=== PATIENT | female | born 1970 | race Caucasian/White ===

== ENCOUNTER 2019-01-06 14:36 | Emergency (ER) | payer OTHER ==
[~2019-01-06] VITALS: Ht 165.1 cm; Wt 65.8 kg
[2019-01-06 16:33] LABS: BASOPHILS # (AUTO) 0.1 (0.0-0.1); BASOPHILS % 0.6 % (0.0-1.0); EOSINOPHILS # (AUTO) 0.3 (0.0-0.4); EOSINOPHILS % 2.9 % (0.0-6.0); HEMATOCRIT 38.6 % (34.2-44.1); HEMOGLOBIN 13.1 g/dL (12.0-16.0); LYMPHOCYTES # (AUTO) 3.4 (1.0-3.2); LYMPHOCYTES % 30.9 % (18.0-39.1); MEAN CORPUSCULAR HGB CONC 33.9 g/dL (31-35); MEAN CORPUSCULAR VOLUME 91.3 fL (81-99); MONOCYTES # (AUTO) 0.6 (0.2-0.8); MONOCYTES % 5.2 % (4.4-11.3); NEUTROPHILS # (AUTO) 6.6 (2.1-6.9); NEUTROPHILS % 59.9 % (38.7-80.0); PLATELET COUNT 423 x10e3/uL (140-360); RED BLOOD COUNT 4.23 x10e6/uL (3.6-5.1); RED CELL DISTRIBUTION WIDTH 12.6 % (11.7-14.4)
[2019-01-06 16:50] LABS: ALANINE AMINOTRANSFERASE 22 IU/L (0-55); ALBUMIN 3.6 g/dL (3.5-5.0); ALBUMIN/GLOBULIN RATIO 0.9 (0.8-2.0); ALKALINE PHOSPHATASE 144 IU/L (40-150); ANION GAP 13.2 mmol/L (8-16); BLOOD UREA NITROGEN 12 mg/dL (7-26); BUN/CREATININE RATIO 15 (6-25); CALCIUM 9.9 mg/dL (8.4-10.2); CARBON DIOXIDE 26 mmol/L (22-29); CHLORIDE 101 mmol/L (98-107); CREATININE, SERUM 0.81 mg/dL (0.57-1.11); EST GLOMERULAR FILTRATION RATE > 60 ML/MIN (60-); GLUCOSE 130 mg/dL (74-118); POTASSIUM 4.2 mmol/L (3.5-5.1); SODIUM 136 mmol/L (136-145)
[2019-01-06] MEDS ORDERED: IBUPROFEN 600 MG TAB PO STA (17:19)
[2019-01-06 17:37] LABS: CLARITY,URINE SL CLOUDY (CLEAR); COLOR,URINE YELLOW (YELLOW); LEUKOCYTE ESTERASE ,URINE NEGATIVE (NEGATIVE)
[2019-01-06 17:38] LABS: AMPHETAMINES SCREEN,URINE POSITIVE (NEGATIVE); BENZODIAZEPINES SCREEN,URINE POSITIVE (NEGATIVE); BILIRUBIN,URINE NEGATIVE (NEGATIVE); KETONES,URINE NEGATIVE (NEGATIVE); NITRITE,URINE NEGATIVE (NEGATIVE); PHENCYCLIDINE SCREEN,URINE NEGATIVE (NEGATIVE); PROTEIN,URINE DIPSTICK NEGATIVE (NEGATIVE); URINE UROBILINOGEN 0.2 mg/dL (0.2 - 1)
[2019-01-06 17:47] LABS: EPITHELIAL CELLS,URINE MODERATE /LPF
[2019-01-06 18:55] VITALS: BP 134/94
== END 2019-01-06 19:02 | disposition home or self-care (01) ==
LOC: ER 14:36
DX: M54.5 Low back pain (principal); M62.830 Muscle spasm of back; G89.29 Other chronic pain; F15.90 Other stimulant use, unspecified, uncomplicated; E11.65 Type 2 diabetes mellitus with hyperglycemia; F17.210 Nicotine dependence, cigarettes, uncomplicated
CPT/HCPCS: 36415; 80053; 80307; 81001; 85025; 87086; 99284

== ENCOUNTER 2020-07-13 07:44 | Emergency (ER) | payer OTHER ==
[~2020-07-13] VITALS: Ht 165.1 cm; Wt 65.8 kg
--- NOTE | 2020-07-13 07:54 | Emergency Department Note ---
History of Present Illnes History of Present Illness Chief Complaint: Chest Pain History of Present Illness This is a 49 year old female Chief Complaint Comment Patient in [facility] with complaints of shortness of breath, and chest pain that radiates down her left arm that started about 2 days ago. Patient also reports some mild nausea and vomiting but denies diarrhea. 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 Patient states she does not have a PCP. Denies taking prescription mediciations for the treatment of any medical problems. 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 Any updates have been documented here. Past Medical History Recent Fever: No Clinical Suspicion of Infectio: No New/Unexplained Change in Ment: No Past Medical History: Diabetes, TIA, Kidney Stones, Migraines, Anxiety, Depression, Chronic Back Pain Other Medical History: PANCREATITIS Past Surgical History: Cholecysctectomy, Appendectomy, Hysterectomy, , Hernia Repair, Back Surgery Other Last Tetanus: OOD Review of Systems Review of Systems Constitutional: Reports no symptoms EENTM: Reports no symptoms Cardiovascular: Reports as per HPI, Reports chest pain Respiratory: Reports no symptoms Gastrointestinal: Reports no symptoms Genitourinary: Reports no symptoms Musculoskeletal: Reports no symptoms Integumentary: Reports no symptoms Neurological: Reports no symptoms Psychological: Reports no symptoms Endocrine: Reports no symptoms Hematological/Lymphatic: Reports no symptoms Physical Exam Related Data Allergies: Coded Allergies: Penicillins (Verified Allergy, Mild, 01/06/19) Triage Vital Signs Vital Signs Date Time Temp Pulse Resp B/P (MAP) Pulse Ox O2 Delivery O2 Flow Rate FiO2 07/13/20 07:46 98.9 94 19 149/96 100 Room Air Vital signs reviewed: Yes Physical Exam CONSTITUTIONAL Constitutional: Present well-developed, Present well-nourished HENT HENT: Present normocephalic, Present atraumatic, Present oropharynx clear/moist, Present nose normal HENT L/R: Present left ext ear normal, Present right ext ear normal EYES Eyes: Reports PERRL, Reports conjunctivae normal NECK Neck: Present ROM normal PULMONARY Pulmonary: Present effort normal, Present breath sounds normal CARDIOVASCULAR Cardiovascular: Present regular rhythm, Present heart sounds normal, Present capillary refill normal, Present normal rate GASTROINTESTINAL Abdominal: Present soft, Present nontender, Present bowel sounds normal GENITOURINARY Genitourinary: Present exam deferred SKIN Skin: Present warm, Present dry MUSCULOSKELETAL Musculoskeletal: Present ROM normal NEUROLOGICAL Neurological: Present alert, Present oriented x 3, Present no gross motor or sensory deficits PSYCHOLOGICAL Psychological: Present mood/affect normal, Present judgement normal Results Laboratory Lab results reviewed: Yes Imaging Imaging results reviewed: Yes Diagnostics Tests Diagnostic test(s) reviewed: Yes Procedures 12 Lead ECG Interpretation ECG Interpretation : Balloon Design Printer: Interpreted by ED physician Date: Jul 13, 2020 Rhythm: sinus rhythm Rate: normal QRS axis: normal ST segments normal: Yes T waves normal: Yes Clinical Impression: non-specific ECG Assessment & Plan Medical Decision Making MDM 49 y.o F presents for consistent CP x 2 days. PMH sig for DM, meth abuse and smoking. Initial diff includes ACS vs PNA vs URI vs dissection among others. Doubt PE. HEART score 2. Cardiopulmonary w/u shows no sig abnormalities. UDS positive for amphetamines and benzos. Discussed results with patient. She wishes to be discharged home. Doubt emergent process at this time. They will follow up with their primary care provider or return to the emergency department for new or worsening symptoms. Patient's appropriate for discharge. Reassessment Reassessment time: 09:36 Reassessment Largely unchanged. 50mcg fentanyl ordered for pain Assessment & Plan Final Impression: (1) Chest pain Depart Disposition: HOME, SELF-CARE Last Vital Signs Date Time Temp Pulse Resp B/P (MAP) Pulse Ox O2 Delivery O2 Flow Rate FiO2 07/13/20 07:46 98.9 94 19 149/96 100 Room Air ELVIA GILL MD Jul 13, 2020 07:54
[2020-07-13 08:05] LABS: BASOPHILS # (AUTO) 0.1 (0.0-0.1); BASOPHILS % 0.5 % (0.0-1.0); EOSINOPHILS # (AUTO) 0.4 (0.0-0.4); EOSINOPHILS % 3.3 % (0.0-6.0); HEMOGLOBIN 12.8 g/dL (12.0-16.0); LYMPHOCYTES # (AUTO) 2.4 (1.0-3.2); LYMPHOCYTES % 23.2 % (18.0-39.1); MEAN CORPUSCULAR HEMOGLOBIN 30.2 pg (28-32); MEAN CORPUSCULAR HGB CONC 32.8 g/dL (31-35); MONOCYTES # (AUTO) 0.5 (0.2-0.8); MONOCYTES % 4.8 % (4.4-11.3); NEUTROPHILS # (AUTO) 7.1 (2.1-6.9); NEUTROPHILS % 67.8 % (38.7-80.0); PLATELET COUNT 406 x10e3/uL (140-360); RED BLOOD COUNT 4.24 x10e6/uL (3.6-5.1); RED CELL DISTRIBUTION WIDTH 12.9 % (11.7-14.4)
[2020-07-13] MEDS ORDERED: ONDANSETRON HCL INJ 2MG/ML 2ML 2 MG/ML VIAL IV STA (08:06)
--- OUTSIDE RECORDS SUMMARY | 2020-07-13 08:09 | XMS REPORT | Continuity of Care Document ---
Author Author Hayde Guillen [employer], JOEL Luu [place] Address Unknown Phone Unavailable Care Team Providers Care Yarn Spinner Name Role Phone [employer] Unavailable Un available Problems Problem Status Onset Date Classification Date Reported Comments Source Discharge Diagnosis: Bruising 06/06/2016 06/09/2016 [place] PAIN IN SIDE Active 06/06/2016 [place] Discharge Diagnosis: Abdominal pain 05/27/2016 05/30/2016 [place] Discharge Diagnosis: Flank pain 05/27/2016 05/30/2016 [place] NAUSEA, BACK, ABD PAIN Active 05/27/2016 [place] Insomnia, unspecified type Act tosin Problem 2.0.1.920112.4.391.11.2 2568 Migraine without status migrainosus, not intractable, unspecified migraine type Active Problem 11/21/2017 2.16840.1.017013.4.391.11.27236 Transient cerebral ischemia, unspecified type Active Problem 11/21/2017 2.16840.1.798532.4.391.11.53304 Otitis externa, unspecified chronicity, unspecified laterality, unspecified type Active Problem 11/21/2017 2.16840.1.003925.4.391.11.84560 Depression, unspecified depression type Active Problem 11/21/2017 2.16840.1.515775.4.391.11.25695 Tobacco use disorder Active Diagnosis 11/21/2017 2.0.1.624943.4.391.11.2 2568 Kidney stones Active Problem 11/21/2017 2.16840.1.539760.4.391.11.80011 Chronic anxiety Active Problem 11/21/2017 2.840.1.378464.4.391.11.2 2568 Type 2 diabetes mellitus without complic ation, without long-term current use of insulin Active Problem 11/21/2017 2.16.840.1.240273.4.391.11.99951 Seizures Active Problem 11/21/2017 2.16.840.1.309276.4.391.11.19167 BMI 26.0-26.9,adult Active Diagnosis 11/21/2017 2.16.840.1.254699.4.391.11.2 2568 Medical non-compliance Active Diagnosis 11/21/2017 2.16.840.1.297684.4.391.11.2 2568 Chest pain, unspecified type A ctive Diagnosis 0 11/21/2017 2.16.840.1.568567.4.391.11.2 2568 Furunculosis Active Diagnosis 11/21/2017 2.16.840.1.228608.4.391.11.2 2568 Encounter for general adult medical exam ination with abnormal findings Active Diag nosis 11/21/2017 2.16.840.1.846109.4.391.11.53080 Dysuria Active Diagnosis 11/14/2016 2.16.840.1.484516.4.391.11.63610 Anxiety (finding) Active Problem 06/09/2016 [place] Chronic back pain (disorder) A ctive Problem [place] Depressive disorder (disorder) Active Problem [place] Diabetes mellitus (disorder) A ctive Problem [place] Insomnia (disorder) Active Problem 06/09/2016 [place] Migraine (disorder) Active Problem 06/09/2016 [place] Neuropathy (disorder) Active Problem 06/09/2016 [place] Transient ischemic attack (disorder) Resolved Problem [place] Medications Medication Details Route Status Patient Instructions Ordering Provider Order Date Source Aspirin EC Low Dose take one t ablet by mouth daily NA Active 81 Vinicio 04/27/2018 2.16.840.1.639322.4.391.11.70336 Ciprofloxacin 1 tablet Orally Active 500 mg Orally Twice a d ay Vinicio 11/11/2017 2.16.840.1.882868.4.391.11.15911 Hibiclens as directed Externally Active 4 % Externally daily Vinicio 10/29/2017 2.16.840.1.903347.4.391.11.05467 Doxycycline Hyclate 1 capsule Orally Active 100 mg Orally every 12 hrs Vinicio 10/29/2017 2.16.840.1.316899.4.391.11.70149 Bactroban 1 application to aff ected area Externally Active 2 % Externally Three times a day Vinicio 10/29/2017 2.16.840.1.732911.4 .391.11.09684 Pravastatin Sodium 1 tablet Orally Active 20 MG Orally Once a day Vinicio 03/07/2017 2.16.840.1.860767.4.391.11.75857 Duloxetine HCl 1 capsule Orally Active 60 MG Orally Once a day Vinicio 03/07/2017 2.16.840.1.647388.4.391.11.05758 Gabapentin 1 capsule Orally Active 400 MG Orally Three larissa es a day Vinicio 03/07/2017 2.16.840.1.767745.4.391.11.49224 Aspir-81 1 tablet Orally Active 81 MG Orally Once a day Vinicio 03/02/2017 2.16.840.1.596856.4.391.11.91657 Bydureon inject 2 mg Subcutaneous Active 2 MG Subcutaneous ONCE A WEEK Vinicio 03/02/2017 2.16.840.1.704405.4.391.11.94964 Cambia [address] omach one time Orally Active 50 MG Orally Once a day Vinicio 03/02/2017 2.16.840.1.184411.4.391.11.04420 Botox inject Injection Active 200 UNIT Injection EVER Y 12 WEEKS Vinicio 03/02/2017 2.16.840.1.117115.4.391.11.50998 Klonopin 1 tablet Orally Active 1 MG Orally three times a day (tid) Vinicio 01/29/2017 2.16.840.1.608833.4.391.11.82355 Klonopin 1 tablet Orally Active 1 MG Orally three times a day (tid) Vinicio 01/29/2017 2.16.840.1.254291.4.391.11.76848 Bactroban 1 application to aff ected area Externally Active 2 % Externally Three times a day Vinicio 01/29/2017 2.16.840.1.223233.4 .391..99831 Flonase 1 spray in each nostril Nasally Active 50 MCG/DOSE Nasally Once a day Vinicio 01/29/2017 2.16.840.1.868411.4.391..95363 Zofran 2 tablets Orally Active 4 MG Orally three times a day (tid) as needed (prn) Vinicio 01/29/2017 2.16.840.1.339580.4.391..74893 Zofran 2 tablets Orally Active 4 mg Orally three times a day (tid) as needed (prn) Vinicio 01/29/2017 2.16.840.1.382256.4.391..23893 Flonase 1 spray in each nostril Nasally Active 50 MCG/DOSE Nasally Once a day Vinicio 01/29/2017 2.16.840.1.689738.4.391..30009 Methocarbamol 1 tablet Orally Active 500 MG Orally as needed (prn) Vinicio 12/02/2016 2.16.840.1.648899.4.391.11.21789 Dilaudid Notes: (Same as: Dila udid) Inactive 06/07/2016 [place] Saline Flush 0.9% Notes: (Same as: BD Posiflush) Inactive 06/07/2016 [place] tramadol hydrochloride 50 MG Oral Tablet [Ultram] 1 - 2 tabs, PO, Q4-6H, PRN as needed for pain, X 5 day, # 30 ea, 0 Refill(s) Active 05/27/2016 [place] Ondansetron 4 MG Disintegrating Tablet [Zofran] 4 mg = 1 tab, PO, TID, PRN Nausea and Vomiting, X 4 day, # 10 tab, 0 Refill(s) Active 05/27/2016 [place] Ketorolac Tromethamine 10 MG Oral Tablet 10 mg = 1 tab, PO, TID, X 5 day, # 15 tab, 0 Refill(s) Active 05/27/2016 [place] Ketorolac 4 days MEDICA TION WASTE Product Size: 30 mg Product Wasted: ___ mg Inactive 05/27/2016 [place] Benadryl Notes: (Same as: Arin dryl) Inactive 05/27/2016 [place] Sumatriptan ONCE, 0 Refill(s) Active 05/27/2016 [place] Trokendi XR PO, Daily, 0 Refil l(s) Active 05/27/2016 [place] duloxetine PO, 0 Refill(s) Active 05/27/2016 [place] Metformin PO, 0 Refill(s) Active 05/27/2016 [place] Pravastatin PO, Bedtime, 0 Ref ill(s) Active 05/27/2016 [place] Ondansetron Notes: (Same as: Babita robles) MEDICATION WASTE Product Size: 4 mg Product Wasted: ___ mg Inactive 05/27/2016 [place] Morphine Notes: (Same as:MORPh ine Sulfate) Inactive 05/27/2016 [facility] Sodium Chloride 0.154 MEQ/ML Injectable Solution 1,000 mL, 2,000 ml/hr, Infuse Over: 30 minutes, Route: IV, 1,000, Drug form: INJ, ONCE, Priority: STAT, Dosing Weight 66.619 kg, Start date: 05/27/16 13:38:00 CDT, Duration: 1 doses or times, Stop date: 05/27/16 13:38:00 CDT Inactive 05/27/2016 [facility] Saline Flush 0.9% Notes: (Same as: BD Posiflush) Inactive 05/27/2016 [facility] Zofran TAKE TWO TABLETS BY ONOFRE THREE TIMES A DAY NEEDED FOR 10 DAYS NA Active 4 Vinicio 2.840.1.656038.4.391. Trokendi XR 1 capsule Orally Active 200 MG Orally Once a da y Vinicio 2.840.1.518719.4.391. Pravastatin Sodium 1 tablet Orally Active 20 MG Orally Once a day Vinicio 2.840.1.679520.4.391. Seroquel 1 tablet Orally Active 25 MG Orally Once a day Vinicio 2.16.840.1.974338.4.391. Duloxetine HCl 1 capsule Orally Active 60 MG Orally Once a day Vinicio 10.11.830.1.774624.4.391. Doxycycline Hyclate 1 capsule Orally Active 100 MG Orally every 12 hrs Vinicio 10.11.830.1.906274.4.391. Sumatriptan Succinate 1 tablet as needed Orally Active 100 MG Orally Twice a day Vinicio 10.11.830.1.075100.4.391. Temazepam 1 capsule at bedtime as needed Orally Active 30 MG Orally Once a day Vinicio 10.11.830.1.575339.4.391 Indomethacin 1 capsule with fo od or milk orally Active orally three times a day (tid) as needed (prn) Vinicio 10.11.830.1.442301.4.391.11.2 2568 Metformin HCl 1 tablet with me als Orally Active 1000 MG Orally Twice a day Vinicio 10.11.830.1.495472.4.391 Gabapentin 1 capsule Orally Active 400 MG Orally Three larissa es a day Vinicio 10.11.830.1.487985.4.391. Clopidogrel Bisulfate 1 tablet Orally Active 75 MG Orally Once a day Vinicio 10.11.830.1.344744.4.391. Metformin HCl 1 tablet with me als Orally Active 1000 mg Orally Twice a day Vinicio 10.11.830.1.346166.4.391 Temazepam 1 capsule at bedtime as needed Orally Active 30 MG Orally Once a day Vinicio 10.11.830.1.400345.4.391. Doxycycline Hyclate 1 capsule Orally Active 100 MG Orally every 12 hrs Vinicio 10.11.830.1.261864.4.391 Clopidogrel Bisulfate 1 tablet Orally Active 75 MG Orally Once a day Vinicio 10.11.830.1.169514.4.391. Pravastatin Sodium TAKE ONE TA BLET BY MOUTH DAILY NA Active 20 Vinicio 10.11.830.1.272673.4.39168 Duloxetine HCl 1 capsule by mouth Active 60 MG by mouth daily Vinicio 840.1.833816.4.391 Seroquel 1 tablet Orally Active 25 MG Orally Once a day Vinicio 840.1.145451.4.391 Trokendi XR 1 capsule Orally Active 200 MG Orally Once a da y Vinicio 840.1.739811.4.391 Gabapentin 1 capsule by mouth Active 400 by mouth three time s a day (tid) Vinicio 840.1.801495.4.391 Sumatriptan Succinate 1 tablet as needed Orally Active 100 mg Orally Twice a day Vinicio 840.1.528306.4.39168 Indomethacin 1 capsule with fo od or milk orally Active orally three times a day (tid) as needed (prn) Vinicio 2.0.1.426996.4.391.11.2 2568 Allergies, Adverse Reactions, Alerts Substance Category Reaction Severity Reaction type Status Date Reported Comments Source penicillin Adverse Reaction shortness of breath Adverse Reaction Active 10/29/2017 2.16840.1.325794.4.391.11.2 2568 morphine Assertion Drug allergy Active [facility] penicillins Assertion Drug allergy Active [facility] Immunizations No Data Provided for This Section Results Order Name Results Value Reference Range Date Interpretation Comments Source URINE AND STOOL Occult Bld Stl Negative (06/06/16 8:22 PM) Negative 06/07/2016 [facility] CARDIAC ENZYMES Troponin-I <0.02 0.00 - 0.40 06/07/2016 [facility] CHEM PANEL Lipase Lvl 201 73 - 393 06/07/2016 [facility] CHEM PANEL eGFR 92 06/07/2016 Result Comment: The eGFR is calculated using the CKD-EPI formula. In most young, healthy individuals the eGFR will be >90 mL/min/1.73m2. The eGFR declines with age. An eGFR of 60-89 may be normal in some populations, particularly the elderly, for whom the CKD-EPI formula has not been extensively validated. Use of the eGFR is not recommended in the following populations:

Individuals with unstable creatinine concentrations, including patients and those with serious co-morbid conditions.

Patients with extremes in muscle mass or diet.

The data above are obtained from the National Kidney Disease Education Program (NKDEP) which additionally recommends that when the eGFR is used in patients with extremes of body mass index for purposes of drug dosing, the eGFR should be multiplied by the estimated BMI. [place] CHEM PANEL Sodium Lvl 143 135 - 145 06/07/2016 [place] CHEM PANEL Creatinine Lvl 0.78 0.50 - 1.40 06/07/2016 [place] CHEM PANEL BUN 17 7 - 22 06/07/2016 [place] CHEM PANEL Potassium Lvl 3.7 3.5 - 5.1 06/07/2016 [place] CHEM PANEL Chloride Lvl 109 95 - 109 06/07/2016 [place] CHEM PANEL AST 11 0 - 37 06/07/2016 [place] CHEM PANEL Bili Total 0.3 0.2 - 1.3 06/07/2016 [place] CHEM PANEL Alk Phos 155 39 - 136 06/07/2016 [place] CHEM PANEL Total Protein 7.8 6.4 - 8.4 06/07/2016 [place] CHEM PANEL ALT 21 0 - 65 06/07/2016 [place] CHEM PANEL Calcium Lvl 9.1 8.5 - 10.5 06/07/2016 [place] CHEM PANEL CO2 26 24 - 32 06/07/2016 [place] CHEM PANEL Albumin Lvl 3.7 3.5 - 5.0 06/07/2016 [place] CHEM PANEL Glucose Lvl 98 70 - 99 06/07/2016 [place] CHEM PANEL A/G Ratio 0.9 0.7 - 1.6 06/07/2016 [place] CHEM PANEL Globulin 4.1 2.7 - 4.2 06/07/2016 [place] CHEM PANEL B/C Ratio 22 6 - 25 06/07/2016 [place] CHEM PANEL AGAP 11.7 10.0 - 20.0 06/07/2016 [place] HEMATOLOGY Hct 37.5 36.0 - 48.0 06/07/2016 [place] HEMATOLOGY RBC 3.95 4.20 - 5.40 06/07/2016 [place] HEMATOLOGY Hgb 12.6 12.0 - 16.0 06/07/2016 [place] HEMATOLOGY WBC 11.9 3.7 - 10.4 06/07/2016 [place] HEMATOLOGY MCH 31.9 27.0 - 31.0 06/07/2016 [place] HEMATOLOGY MCV 94.8 80.0 - 98.0 06/07/2016 [place] HEMATOLOGY MCHC 33.7 32.0 - 36.0 06/07/2016 [place] HEMATOLOGY RDW 13.4 11.5 - 14.5 06/07/2016 [place] HEMATOLOGY MPV 7.6 7.4 - 10.4 06/07/2016 [place] HEMATOLOGY Platelet 373 133 - 450 06/07/2016 [place] HEMATOLOGY PTT 37.9 22.9 - 35.8 06/07/2016 [place] HEMATOLOGY INR 1.02 0.85 - 1.17 06/07/2016 [place] HEMATOLOGY PT 13.6 12.0 - 14.7 06/07/2016 [place] HEMATOLOGY Monocytes 5.3 2.0 - 12.0 06/07/2016 [place] HEMATOLOGY Lymphocytes 34.4 20.0 - 40.0 06/07/2016 [place] HEMATOLOGY Segs 56.1 45.0 - 75.0 06/07/2016 [place] HEMATOLOGY Eosinophils 3.7 0.0 - 4.0 06/07/2016 [place] HEMATOLOGY Basophils 0.5 0.0 - 1.0 06/07/2016 [place] HEMATOLOGY Segs-Bands # 6.7 1.5 - 8.1 06/07/2016 [place] HEMATOLOGY Monocytes # 0.6 0.0 - 0.8 06/07/2016 [place] HEMATOLOGY Lymphocytes # 4.1 1.0 - 5.5 06/07/2016 [place] HEMATOLOGY Eosinophils # 0.4 0.0 - 0.5 06/07/2016 [place] HEMATOLOGY Basophils # 0.1 0.0 - 0.2 06/07/2016 [place] CHEM PANEL Glucose Lvl 76 70 - 99 05/27/2016 [place] CHEM PANEL BUN 9 7 - 22 05/27/2016 [place] CHEM PANEL Creatinine Lvl 0.76 0.50 - 1.40 05/27/2016 [place] CHEM PANEL Chloride Lvl 109 95 - 109 05/27/2016 [place] CHEM PANEL CO2 25 24 - 32 05/27/2016 [place] CHEM PANEL Sodium Lvl 145 135 - 145 05/27/2016 [place] CHEM PANEL Potassium Lvl 4.0 3.5 - 5.1 05/27/2016 [place] CHEM PANEL A/G Ratio 0.9 0.7 - 1.6 05/27/2016 [place] CHEM PANEL eGFR 95 05/27/2016 Result Comment: The eGFR is calculated using the CKD-EPI formula. In most young, healthy individuals the eGFR will be >90 mL/min/1.73m2. The eGFR declines with age. An eGFR of 60-89 may be normal in some populations, particularly the elderly, for whom the CKD-EPI formula has not been extensively validated. Use of the eGFR is not recommended in the following populations:

Individuals with unstable creatinine concentrations, including patients and those with serious co-morbid conditions.

Patients with extremes in muscle mass or diet.

The data above are obtained from the National Kidney Disease Education Program (NKDEP) which additionally recommends that when the eGFR is used in patients with extremes of body mass index for purposes of drug dosing, the eGFR should be multiplied by the estimated BMI. [place] CHEM PANEL Total Protein 7.6 6.4 - 8.4 05/27/2016 [place] CHEM PANEL Calcium Lvl 8.7 8.5 - 10.5 05/27/2016 [place] CHEM PANEL ALT 20 0 - 65 05/27/2016 [place] CHEM PANEL Albumin Lvl 3.7 3.5 - 5.0 05/27/2016 [place] CHEM PANEL AST 12 0 - 37 05/27/2016 [place] CHEM PANEL Bili Total <0.1 0.2 - 1.3 05/27/2016 [place] CHEM PANEL Alk Phos 146 39 - 136 05/27/2016 [place] CHEM PANEL B/C Ratio 12 6 - 25 05/27/2016 [place] CHEM PANEL AGAP 15.0 10.0 - 20.0 05/27/2016 [place] CHEM PANEL Globulin 3.9 2.7 - 4.2 05/27/2016 [place] CHEM PANEL Lipase Lvl 133 73 - 393 05/27/2016 [place] HEMATOLOGY MPV 7.9 7.4 - 10.4 05/27/2016 [place] HEMATOLOGY MCHC 34.0 32.0 - 36.0 05/27/2016 [place] HEMATOLOGY MCH 31.8 27.0 - 31.0 05/27/2016 [place] HEMATOLOGY MCV 93.7 80.0 - 98.0 05/27/2016 [place] HEMATOLOGY Hct 37.8 36.0 - 48.0 05/27/2016 [place] HEMATOLOGY RDW 13.3 11.5 - 14.5 05/27/2016 [place] HEMATOLOGY Hgb 12.8 12.0 - 16.0 05/27/2016 [place] HEMATOLOGY RBC 4.03 4.20 - 5.40 05/27/2016 [place] HEMATOLOGY WBC 11.8 3.7 - 10.4 05/27/2016 [place] HEMATOLOGY Platelet 395 133 - 450 05/27/2016 [place] HEMATOLOGY Basophils # 0.1 0.0 - 0.2 05/27/2016 [place] HEMATOLOGY Eosinophils # 0.4 0.0 - 0.5 05/27/2016 [place] HEMATOLOGY Monocytes # 0.5 0.0 - 0.8 05/27/2016 [place] HEMATOLOGY Basophils 0.7 0.0 - 1.0 05/27/2016 [place] HEMATOLOGY Eosinophils 3.8 0.0 - 4.0 05/27/2016 [place] HEMATOLOGY Monocytes 4.0 2.0 - 12.0 05/27/2016 [place] HEMATOLOGY Lymphocytes # 3.9 1.0 - 5.5 05/27/2016 [place] HEMATOLOGY Segs-Bands # 6.8 1.5 - 8.1 05/27/2016 [place] HEMATOLOGY Lymphocytes 33.4 20.0 - 40.0 05/27/2016 [place] HEMATOLOGY Segs 58.1 45.0 - 75.0 05/27/2016 [place] URINE AND STOOL UA Sq Epi Occasional /LPF Few /LPF 05/27/2016 [place] URINE AND STOOL UA RBC 1 0 - 2 05/27/2016 [place] URINE AND STOOL UA WBC 1 0 - 5 05/27/2016 [place] URINE AND STOOL UA Mucus Many /LPF None Seen /LPF 05/27/2016 [place] URINE AND STOOL UA Nitrite Negative (05/27/16 2:02 PM) Negative 05/27/2016 [place] URINE AND STOOL UA Leuk Est Negative (05/27/16 2:02 PM) Negative 05/27/2016 [place] URINE AND STOOL UA Glucose Negative mg/dL Negative mg/dL 05/27/2016 [facility] Sugar L and URINE AND STOOL UA Urobilinogen 0.2 0.1 - 1.0 05/27/2016 [place] URINE AND STOOL UA Ketones Negative mg/dL Negative mg/dL 05/27/2016 [facility] Sugar L and URINE AND STOOL UA Blood Negative (05/27/16 2:02 PM) Negative 05/27/2016 [place] URINE AND STOOL UA Bili Negative *NA* (05/27/16 2:02 PM) Negative 05/27/2016 [place] URINE AND STOOL UA Color Yellow *NA* (05/27/16 2:02 PM) Yellow 05/27/2016 [place] URINE AND STOOL UA Protein Negative mg/dL Negative mg/dL 05/27/2016 [facility] Sugar L and URINE AND STOOL UA Spec Grav 1.020 <=1.030 05/27/2016 [place] URINE AND STOOL UA Turbidity Clear (05/27/16 2:02 PM) Clear 05/27/2016 [place] URINE AND STOOL UA pH 6.0 5.0 - 8.0 05/27/2016 [place] Pathology Reports No Data Provided for This Section Diagnostic Reports Report Value Date Source Renal Stone CT TECHNIQUE: [facility] Stone protocol CT is performed without iodinated contrast. Helical CT axial images were obtained from the level of the diaphragm through the lower pelvis. Coronal and sagittal MPR images were obtained. The DLP is 1191 mGy-cm. COMPARISON: No prior exam. Clinical: Left lower quadrant pain. FINDINGS: The included lung bases are clear. There is no pneumoperitoneum. Nonobstructive left lower renal 3.8 mm papillary calculus is present. No additional urinary tract calculus is seen. No obstructive uropathy is seen bilaterally. The urinary bladder is unremarkable. The non contrast opacified loops of colon and small bowel in the abdomen and pelvis are grossly unremarkable. The appendix is not identified. Right lower quadrant surgical clips are present. The lack of orally administered contrast material limits bowel evaluation. The visualized non contrast enhanced images of the liver, spleen, pancreas, and adrenals are unremarkable. The patient is post cholecystectomy. Mild abdominal aortic atherosclerosis is present without aneurysm. No free fluid is identified in the abdomen and pelvis. L5-S1 posterior fusion changes are present. Please note that the left S1 fixation screw protrudes into the left common iliac vessels. IMPRESSION: 1. Nonobstructive left renal calculus. N o hydronephrosis bilaterally. 2. Please see additional comments above. 05/27/2016 [place] Consultation Notes No Data Provided for This Section Discharge Summaries No Data Provided for This Section History and Physicals No Data Provided for This Section Vital Signs Vital Sign Value Date Comments Source Weight 157.9 10/29/2017 2.16.840.1.061890.4.391.11.2 2568 Height 65.0 10/29/2017 2.16.840.1.429517.4.391.11.2 2568 Temperature Oral (F) 98.0 F 10/29/2017 2.16.840.1.356407.4.391.11.84826 Heart Rate 97 10/29/2017 2.16.840.1.473844.4.391.11.2 2568 Diastolic (mm Hg) 87 10/29/2017 2.16.840.1.395554.4.391.11.59883 Systolic (mm Hg) 138 10/29/2017 2.16.840.1.900452.4.391.11.53223 Weight 128.1 01/29/2017 2.16.840.1.420456.4.391.11.2 2568 Height 65.0 01/29/2017 2.16.840.1.125001.4.391.11.2 2568 Temperature Oral (F) 98.3 F 01/29/2017 2.16.840.1.949144.4.391.11.76601 Heart Rate 82 01/29/2017 2.16.840.1.071657.4.391.11.2 2568 Diastolic (mm Hg) 72 01/29/2017 2.16.840.1.560065.4.391.11.39488 Systolic (mm Hg) 116 01/29/2017 2.16.840.1.009926.4.391.11.85455 Weight 126.5 11/02/2016 2.16.840.1.507454.4.391.11.2 2568 Height 65.0 11/02/2016 2.16.840.1.103195.4.391.11.2 2568 Temperature Oral (F) 97.7 F 11/02/2016 2.16.840.1.977510.4.391.11.15659 Heart Rate 86 11/02/2016 2.16.840.1.111842.4.391.11.2 2568 Diastolic (mm Hg) 83 11/02/2016 2.16.840.1.903609.4.391.11.63224 Systolic (mm Hg) 121 11/02/2016 2.16.840.1.217984.4.391.11.63222 Systolic (mm Hg) 108 06/07/2016 [place] Diastolic (mm Hg) 74 06/07/2016 [place] Temperature Oral (F) 97.7 F 06/07/2016 [place] Respitory Rate 20 06/07/2016 [place] Heart Rate 76 06/07/2016 [place] Heart Rate 86 06/07/2016 [place] Systolic (mm Hg) 110 06/07/2016 [place] Diastolic (mm Hg) 70 06/07/2016 [place] Respitory Rate 18 06/07/2016 [place] Temperature Oral (F) 98.2 F 06/07/2016 [place] Heart Rate 71 05/27/2016 [place] Respitory Rate 20 05/27/2016 [place] Systolic (mm Hg) 132 05/27/2016 [place] Diastolic (mm Hg) 80 05/27/2016 [place] Temperature Oral (F) 98.1 F 05/27/2016 [place] Systolic (mm Hg) 139 05/27/2016 [place] Diastolic (mm Hg) 73 05/27/2016 [place] Respitory Rate 20 05/27/2016 [place] Heart Rate 72 05/27/2016 [place] Respitory Rate 18 05/27/2016 [place] Heart Rate 83 05/27/2016 [place] Temperature Oral (F) 98.3 F 05/27/2016 [place] Systolic (mm Hg) 124 05/27/2016 [place] Diastolic (mm Hg) 87 05/27/2016 [place] Weight 66.619 05/27/2016 [place] Encounters Location Location Details Encounter Type Encounter Number Reason For Visit Attending Provider ADM Date DC Date Status Source [facility] [place] [facility] [id number] Phil Lozano 05/27/2016 05/27/2016 [place] [facility] [place] [facility] [id number] Tony Vaughn 06/07/2016 06/07/2016 [place] Procedures Procedure Code Date Perfomer Comments Source Abdominal hysterectomy [id number] [place] Appendectomy [id number] Sugar L and section [id number] [place] Cholecystectomy [id number] [place] Excision of breast tissue [phone] [place] Lumbar discectomy [id number] [place] Assessment and Plan No Data Provided for This Section Plan of Care No Data Provided for This Section Social History Social History Date Source Social History TypeResponse Alcohol Never Smoking Status Current every day smoker; Exposure to Tobacco Smoke None; Cigarette Smoking Last 365 Days No; Reg Smoking Cessation Counseling No 05/30/2016 [place] Family History No Data Provided for This Section Advance Directives No Data Provided for This Section Functional Status No Data Provided for This Section
--- OUTSIDE RECORDS SUMMARY | 2020-07-13 08:10 | XMS REPORT | Continuity of Care Document ---
Author Author [facility] t Organization [facility] Address [address] [place] [address] Phone Unavailable Care Team Providers Care Leak Detector Name Role Phone NO, PCP PCP Unavailable Annabella BARRAZA Attphys Unavailable Manuel Vaughn Attphys Tenzin Lozano Attphys Payers Payer Name Policy Type Policy Number Effective Date Expiration Date S [facility] Self Pay [facility] Problems Condition Name Condition Details Condition Category Status Onset Date Resolution Date Last Treatment Date Treating Clinician Comments Source PAIN IN SIDE PAIN IN SIDE Active 06/06/2016 [place] Diagnosis Active 2016-06-06 00:00:00 2016-07-25 14:09:00 Hayde Guillen NAUSEA, BACK, ABD PAIN NAUS EA, BACK, ABD PAIN Active 05/27/2016 [place] Diagnosis Active 2016-05-27 00:00:00 2016-06 10:28:00 Hayde Guillen Transient ischemic attack (disorder) Transient ischemic attack (disorder) Resolved Problem 06/09/2016 [place] Problem Resolved 2016-06-09 03:59:46 Hayde Guillen Insomnia, unspecified type Ins omnia, unspecified type Active Problem 11/21/2017 [id number] Problem Active 2017-11-21 02:49:18 Hayde Guillen Migraine without status migrainosus, not intractable, unspecified migraine type Migraine without status migrainosus, not intractable, unspecified migraine type Active Problem 11/21/2017 [id number] Problem Active 2017-11-21 02:49:18 King Guillen Transient cerebral ischemia, unspecified type Transient cerebral ischemia, unspecified type Active Problem 11/21/2017 [id number] Problem Active 2017-11-21 02:49:18 Hayde Guillen Otitis externa, unspecified chronicity, unspecified laterality, unspecified type Otitis externa, unspecified chronicity, unspecified laterality, unspecified type Active Problem 11/21/2017 [id number]..02963 Problem Active 2017-11-21 02:49:18 King Guillen Depression, unspecified depression type Depression, unspecified depression type Active Problem 11/21/2017 2..840.1.692964.4.391..86093 Problem Active 2017-11-21 02:49:18 King Guillen Tobacco use disorder 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 Active Diagnosis 11/21/2017 [id number]..99430 Diagnosis Active 2017-11-21 02:49:18 Hayde Guillen Kidney stones Kidn ey stones Active Problem 11/21/2017 [id number] Problem Active 2017-11-21 02:49:18 Hayde Guillen Chronic anxiety Ion Exchange Operator rg anxiety Active Problem 11/21/2017 2.16.840.1.775523.4.391.11.14468 Problem Active 2017-11-21 02:49:18 Hayde Guillen Type 2 diabetes mellitus without complic ation, without long-term current use of insulin Type 2 diabetes mellitus without complication, without long-term current use of insulin Active Problem 11/21/2017 2.16.840.1.585440.4.391.11.46141 Problem Active 2017-11-21 02:49:18 Hayde Guillen Seizures Seiz ures Active Problem 11/21/2017 2.16.840.1.895377.4.391.11.22051 Problem Active 2017-11-21 02:49:18 [facility] BMI 26.0-26.9,adult BMI 26.0-26.9,adult Active Diagnosis 11/21/2017 [id number] Diagnosis Active 2017-11-21 02:49:18 [facility] Medical non-compliance Medi adeola non-compliance Active Diagnosis 11/21/2017 [id number] Diagnosis Active 2017-11-21 02:49:18 Hayde Guillen Chest pain, unspecified type C hest pain, unspecified type Active Diagnosis 11/21/2017 [id number] Diagnosis Active 2017-11-21 02:49:18 Memor mariella Guillen Furunculosis Furu nculosis Active Diagnosis 11/21/2017 [id number] Diagnosis Active 2017-11-21 02:49:18 Hayde Guillen Encounter for general adult medical examination with a bnormal findings Encounter for general adult medical examination with abnormal findings Active Diagnosis 11/21/2017 [id number] Diagnosis Active 2017-11-21 02:49:18 Memor mariella Guillen Dysuria Dysu everette Active Diagnosis 11/14/2016 [id number] Diagnosis Active 2016-11-14 02:45:42 Hayde Guillen Anxiety (finding) Anxi ety (finding) Active Problem 06/09/2016 [place] Problem Active 2016-06-09 03:59:46 Hayde Guillen Chronic back pain (disorder) C hronic back pain (disorder) Active Problem 06/09/2016 [place] Problem Active 2016-06-09 03:59:46 Hayde Guillen Depressive disorder (disorder) Depressive disorder (disorder) Active Problem 06/09/2016 [place] Problem Active 2016-06-09 03:59:46 Hayde Guillen Diabetes mellitus (disorder) D iabetes mellitus (disorder) Active Problem 06/09/2016 [place] Problem Active 2016-06-09 03:59:46 [facility] Insomnia (disorder) Inso mnia (disorder) Active Problem 06/09/2016 [place] Problem Active 2016-06-09 03:59:46 [facility] Migraine (disorder) Migr tha (disorder) Active Problem 06/09/2016 [place] Problem Active 2016-06-09 03:59:46 [facility] Neuropathy (disorder) Neur opathy (disorder) Active Problem 06/09/2016 [place] Problem Active 2016-06-09 03:59:46 [facility] Discharge Diagnosis: Bruising Discharge Diagnosis: Bruising 06/06/2016 06/09/2016 [place] Problem 2015 05:00:00 2016-06-09 03:59:46 2016-06-09 03:59:46 [facility] Discharge Diagnosis: Abdominal pain Discharge Diagnosis: Abdominal pain 05/27/2016 05/30/2016 [place] Problem 2016-05-27 05:00:00 2016-05-30 00:30:44 2016-05-30 00:30:44 [facility]: Flank pain Discharge Diagnosis: Flank pain 05/27/2016 05/30/2016 [place] Problem 20 10-06-02 05:00:00 2016-05-30 00:30:44 2016-05-30 00:30:44 [facility] Allergies, Adverse Reactions, Alerts Allergy Name Allergy Type Status Severity Reaction(s) Onset Date Inacti ve Date Treating Clinician Comments Source Penicillins DA Active SV 2019-02-10 00:00:00 [facility] Penicillin Allergy to Substance Active Mild 2019-01-06 00:00:00 [facility] penicillin penicillin Active shortness of breath 2017-10-29 00:00: 00 [facility] Penicillins DA Active SV 2016-12-16 00:00:00 [facility] morphine morphine Active [facility] penicillins penicillins Active [facility] Social History Social Habit Start Date Stop Date Quantity Comments Source Social History 2016-05-30 17:29:03 2016-05-30 17:29:03 [facility] Medications Ordered Medication Name Filled Medication Name Start Date Stop Da te Current Medication? Ordering Clinician Indication Dosage Frequency Signature (SIG) Comments Components Source Aspirin EC Low Dose 2018-04-27 00:00:00 Yes Lux Jave d take one tablet by mouth daily [facility] Zofran 2017-11-21 02:49:18 Yes Lux Vinicio TAKE TWO TABLETS BY MOUTH THREE TIMES A DAY NEEDED FOR 10 DAYS [facility] Metformin HCl 2017-11-21 02:49:18 Yes Lux Vinicio 1 tablet with meals [facility] Temazepam 2017-11-21 02:49:18 Yes Lux Vinicio 1 capsule at bedtime as needed [facility] Doxycycline Hyclate 2017-11-21 02:49:18 Yes Lux Vinicio 1 capsule [facility] Clopidogrel Bisulfate 2017-11-21 02:49:18 Yes Lux Vinicio 1 tablet [facility] Pravastatin Sodium 2017-11-21 02:49:18 Yes Lux Vinicio TAKE ONE TABLET BY MOUTH DAILY [facility] Duloxetine HCl 2017-11-21 02:49:18 Yes Lux Vinicio 1 capsule [facility] Seroquel 2017-11-21 02:49:18 Yes Lux Vinicio 1 tablet [facility] Trokendi XR 2017-11-21 02:49:18 Yes Lux Vinicio 1 capsule [facility] Gabapentin 2017-11-21 02:49:18 Yes Lux Vinicio 1 capsule [facility] Sumatriptan Succinate 2017-11-21 02:49:18 Yes Lux Ja conor 1 tablet as needed [facility] Indomethacin 2017-11-21 02:49:18 Yes Lux Vinicio 1 capsule with food or milk [facility] Ciprofloxacin 2017-11-11 00:00:00 Yes Lux Vinicio 1 tablet [facility] Hibiclens 2017-10-29 00:00:00 Yes Lux Vinicio a s directed [facility] Doxycycline Hyclate 2017-10-29 00:00:00 Yes Lux Vinicio 1 capsule [facility] Bactroban 2017-10-29 00:00:00 Yes Lux Vinicio 1 application to affected area [facility] Pravastatin Sodium 2017-03-07 00:00:00 Yes Lux Vinicio 1 tablet [facility] Duloxetine HCl 2017-03-07 00:00:00 Yes Lux Vinicio 1 capsule [facility] Gabapentin 2017-03-07 00:00:00 Yes Lux Vinicio 1 capsule [facility] Aspir-81 2017-03-02 00:00:00 Yes Lux Vinicio 1 tablet [facility] Bydureon 2017-03-02 00:00:00 Yes Lux Vinicio in ject 2 mg [facility] Cambia 2017-03-02 00:00:00 Yes Lux Vinicio 1 packet on an empty stomach one time [facility] Botox 2017-03-02 00:00:00 Yes Lux Vinicio injec t [facility] Trokendi XR 2017-01-31 02:46:36 Yes Lux Vinicio 1 capsule [facility] Pravastatin Sodium 2017-01-31 02:46:36 Yes Lux Vinicio 1 tablet [facility] Seroquel 2017-01-31 02:46:36 Yes Lux Vinicio 1 tablet [facility] Duloxetine HCl 2017-01-31 02:46:36 Yes Lux Vinicio 1 capsule [facility] Doxycycline Hyclate 2017-01-31 02:46:36 Yes Lux Vinicio 1 capsule [facility] Sumatriptan Succinate 2017-01-31 02:46:36 Yes Lux Ja conor 1 tablet as needed [facility] Temazepam 2017-01-31 02:46:36 Yes Lux Vinicio 1 capsule at bedtime as needed [facility] Indomethacin 2017-01-31 02:46:36 Yes Lux Vinicio 1 capsule with food or milk [facility] Metformin HCl 2017-01-31 02:46:36 Yes Lux Vinicio 1 tablet with meals [facility] Gabapentin 2017-01-31 02:46:36 Yes Lux Viniico 1 capsule [facility] Clopidogrel Bisulfate 2017-01-31 02:46:36 Yes Lux Vinicio 1 tablet [facility] Klonopin 2017-01-29 00:00:00 Yes Lux Vinicio 1 tablet [facility] Klonopin 2017-01-29 00:00:00 Yes Lux Vinicio 1 tablet [facility] Bactroban 2017-01-29 00:00:00 Yes Lux Vinicio 1 application to affected area [facility] Flonase 2017-01-29 00:00:00 Yes Lux Vinicio 1 spray in each nostril [facility] Zofran 2017-01-29 00:00:00 Yes Lux Vinicio 2 ta blets Hayde Guillen Zofran 2017-01-29 00:00:00 Yes Lux Vinicio 2 ta blets Hayde Guillen Flonase 2017-01-29 00:00:00 Yes Lux Vinicio 1 spray in each nostril Hayde Guillen Methocarbamol 2016-12-02 00:00:00 Yes Lux Vinicio 1 tablet Hayde Guillen Dilaudid 2016-06-07 02:45:00 No Notes: ([facility] indra as: Dilaudid) Hayde Guillen Saline Flush 0.9% 2016-06-07 01:03:00 No Notes: (Same as: BD Posiflush) Hayde Guillen tramadol hydrochloride 50 MG Oral Tablet [Ultram] 2016-05-27 20:55:00 Yes 1 - 2 tabs, PO, Q4-6 H, PRN as needed for pain, X 5 day, # 30 ea, 0 Refill(s) Hayde Guillen Ondansetron 4 MG Disintegrating Tablet [Zofran] 2016-05-27 20:55 :00 Yes 4 mg = 1 tab, PO, TID, PRN N ausea and Vomiting, X 4 day, # 10 tab, 0 Refill(s) Hayde Guillen Ketorolac Tromethamine 10 MG Oral Tablet 2016-05-27 20:55:00 Yes 10 mg = 1 tab, PO, TID, X 5 day, # 15 tab, 0 Refill(s) [facility] Ketorolac 2016-05-27 20:11:00 No 4 days MEDICATION WASTE Product Size: 30 mg Product Wasted: ___ mg Hayde Guillen Benadryl 2016-05-27 19:11:00 No Notes: ([facility] indra as: Benadryl) Hayde Guillen Sumatriptan 2016-05-27 18:42:00 Yes ONCE, 0 Refill(s) Hayde Guillen Trokendi XR 2016-05-27 18:41:00 Yes PO, Hermelinda y, 0 Refill(s) Hayde Guillen duloxetine 2016-05-27 18:40:00 Yes PO, 0 Ref ill(s) [facility] Metformin 2016-05-27 18:40:00 Yes PO, 0 Refi ll(s) [facility] Pravastatin 2016-05-27 18:40:00 Yes PO, Bedt freedom, 0 Refill(s) Hayde Guillen Ondansetron 2016-05-27 18:38:00 No Notes: (Same as: Sha) MEDICATION WASTE Product Size: 4 mg Product Wasted: ___ mg Hayde Guillen Morphine 2016-05-27 18:38:00 No Not es: (Same as:MORPhine Sulfate) Hayde Guillen Sodium Chloride 0.154 MEQ/ML Injectable Solution 2016-05-27 18:3 8:00 No 1,000 mL, 2,000 ml/hr, Infus e Over: 30 minutes, Route: IV, 1,000, Drug form: INJ, ONCE, Priority: STAT, Dosing Weight 66.619 kg, Start date: 05/27/16 13:38:00 CDT, Duration: 1 doses or times, Stop date: 05/27/16 13:38:00 [facility]T [facility] Sal[facility] Flush 0.9% 2016-05-27 18:38:00 No Notes: (Same as: BD Posiflush) [facility] Vital Signs Vital Name Observation Time Observation Value Comments Source Weight 2017-10-29 19:45:00 [facility] Height 2017-10-29 19:45:00 [facility] Temperature Oral (F) 2017-10-29 19:45:00 98.0 F [facility] Heart Rate 2017-10-29 19:45:00 [facility] Diastolic (mm Hg) 2017-10-29 19:45:00 [facility] Systolic (mm Hg) 2017-10-29 19:45:00 [facility] Weight 2017-01-29 17:00:00 [facility] Height 2017-01-29 17:00:00 [facility] Temperature Oral (F) 2017-01-29 17:00:00 98.3 F [facility] Heart Rate 2017-01-29 17:00:00 [facility] Diastolic (mm Hg) 2017-01-29 17:00:00 [facility] Systolic (mm Hg) 2017-01-29 17:00:00 [facility] Weight 2016-11-02 20:30:00 [facility] Height 2016-11-02 20:30:00 [facility] Temperature Oral (F) 2016-11-02 20:30:00 97.7 F [facility] Heart Rate 2016-11-02 20:30:00 [facility] Diastolic (mm Hg) 2016-11-02 20:30:00 [facility] Systolic (mm Hg) 2016-11-02 20:30:00 King [facility] Systolic (mm Hg) 2016-06-07 03:04:00 King [facility] Diastolic (mm Hg) 2016-06-07 03:04:00 [facility] Temperature Oral (F) 2016-06-07 03:04:00 97.7 F [facility] Respitory Rate 2016-06-07 03:04:00 [facility] Heart Rate 2016-06-07 03:04:00 [facility] Heart Rate 2016-06-07 00:36:00 [facility] Systolic (mm Hg) 2016-06-07 00:36:00 King [facility] Diastolic (mm Hg) 2016-06-07 00:36:00 [facility] Respitory Rate 2016-06-07 00:36:00 [facility] Temperature Oral (F) 2016-06-07 00:36:00 98.2 F [facility] Heart Rate 2016-05-27 21:03:00 [facility] Respitory Rate 2016-05-27 21:03:00 [facility] Systolic (mm Hg) 2016-05-27 21:03:00 [facility] Diastolic (mm Hg) 2016-05-27 21:03:00 [facility] Temperature Oral (F) 2016-05-27 21:03:00 98.1 F [facility] Systolic (mm Hg) 2016-05-27 20:21:00 King [facility] Diastolic (mm Hg) 2016-05-27 20:21:00 [facility] Respitory Rate 2016-05-27 20:21:00 [facility] Heart Rate 2016-05-27 20:21:00 [facility] Respitory Rate 2016-05-27 17:48:00 [facility] Heart Rate 2016-05-27 17:48:00 [facility] Temperature Oral (F) 2016-05-27 17:48:00 98.3 F [facility] Systolic (mm Hg) 2016-05-27 17:48:00 King [facility] Diastolic (mm Hg) 2016-05-27 17:48:00 [facility] Weight 2016-05-27 17:48:00 [facility] Procedures Procedure Date / Time Performed Performing Clinician Brant e Abdominal hysterectomy [facility] Appendectomy [facility] section [facility] n Cholecystectomy [facility] Excision of breast tissue [facility] Lumbar discectomy [facility] Sand[facility] nn Encounters Start Date/Time End Date/Time Encounter [facility] ID Source 2019-01-06 14:36:00 2019-01-06 19:02:00 Departed Emergency Room [facility] [id number] [facility] 2017-11-11 17:23:00 2017-11-11 17:23:00 Outpatient [facility] [place] [id number] eClinicalWork s 2017-10-29 14:45:00 2017-10-29 14:45:00 Outpatient [facility] [place] [id number] eClinicalWork s 2017-07-05 09:54:00 2017-07-05 09:54:00 Outpatient [facility] [place] [id number] eClinicalWork s 2017-04-11 13:26:00 2017-04-11 13:26:00 Outpatient [facility] [place] [id number] eClinicalWork s 2017-01-29 12:00:00 2017-01-29 12:00:00 Outpatient [facility] [place] [id number] eClinicalWork s 2016-11-02 15:30:00 2016-11-02 15:30:00 Outpatient [facility] [place] [id number] eClinicalWork s 2016-06-06 19:31:00 2016-06-06 22:07:00 Outpatient Tony Vaughn [facility] [id number] 2016-05-27 12:46:00 2016-05-27 16:03:00 Outpatient Penny Lozano [facility] [id number] Results Test Description Test Time Test Comments Results Result Comments Source - CT ABD PELVIS W/CONT 2019-03-14 21:42:00 Giorgio e: JOEL WILSON [facility] : 1970 Age/S: 48 / F [address] [facility] Unit #: [id number] Loc: [place] Hernán[place] [address] Phys: Enid Fitzgerald MD Acct: [id number] Dis Date: Status: REG ER PHONE #: [phone] Exam Date: 03/14/20192125 FAX #: [phone] Reason: R SIDED ABD PAIN AND DISTENTION EXAMS: CPT CODE: [id number] CT ABD PELVIS W/CONT 85238 AFTER HOURS SERVICE ON: 03/14/2019 9:[address] Scan of the Abdomen and Pelvis With Contrast Location Code M12 History: R SIDED ABD PAIN AND DISTENTION Technique: Axial and reconstructed coronal scans were performed on a helical scanner post IV contrast. Delayed scans were also obtained. One or more of the following dose reduction techniques were used: Automated exposure control, adjustment of the mA and/or kV according to p atient size, and/or utilization of iterative reconstruction technique. Findings: LIVER: No significant findings. GALLBLADDER/BILIARY: Cholecystectomy. PANCREAS: No significant findings. SPLEEN: No significant findings. ADRENALS: No significant findings. KIDNEYS: There is a 4 mm nonobstructing left lower pole renal calculus. No hydronephrosis. BLADDER: No significant findings. GASTROINTESTINAL: No significant findings. The appendix is not visualized. OTHER: Bilateral adnexal surgical clips are in place. Uterus is absent.. IMPRESSION: No acute findings in the abdomen or pelvis. at 2142 Reported and signed by: Danna Dover M.D. PAGE 1 Signed Report (CONTINUED) Name: JOEL WILSON [facility] : 1970 Age/S: 48 / F [address] [facility] Unit #: [id number] Loc: [place] [address] Phys: Enid Fitzgerald MD Acct: [id number] Dis Date: Status: REG ER PHONE #: [phone] Exam Date: 03/14/20192125 FAX #: [phone] Reason: R SIDED ABD PAIN AND DISTENTION EXAMS: CPT CODE: [id number] CT ABD PELVIS W/CONT 28890 <Continued> CC: Halina Mooney M.D. Technologist:FRANCISCO YEN RT(R),CT CTDI: DLP: Trnscb Date/Time: 03/14/2019 (2141) [email or web address] Orig Print D/T: S: 03/14/2019 (2144) PAGE 2 Signed Report - XR CHEST 1 V 2019-03-14 21:34:00 Name: JOEL MELENDREZ [facility] : 1970 Age/S:48 /F [address] [facility] Unit#:[id number] Loc: [place] Hern[place]dez, [place] x [address] Phys: Enid Fitzgerald MD Dis Date: PHONE #: [phone] Status: REG ER FAX #: [phone] Exam Date: 03/14/2019 Reason: CHEST PAIN EXAMS: CPT CODE: [id number] XR CHEST 1 V 53221 HISTORY: CHEST PAIN TECHNIQUE: AP chest x-ray COMPARISON: 02/10/19 FINDINGS: No airspace consolidation or pleural effusion. Normal heart size. Mediastinal silhouette is unremarkable. Visualized osseous structures are grossly intact. IMPRESSION: No acute findings or significant interval change. at 2133 Reported and signed by: Mirta Ochoa D.O. CC: Halina Mooney M.D. Technologist: FRANCISCO YEN RT(R),CT Trnscrpt Data: 03/14/2019 (2133) [email or web address] Orig Print D/T: S: 03/14/2019 (2137) PAGE 1 Signed Report B-TYPE NATRIURETIC PEPTIDE 2019-03-14 21:06:00 Test Item B-TYPE NATRIURETIC PEPTIDE (test code = BNP) 11.9 pg/mL 0-100 N URINALYSIS [id number] 21:05:00* Test Item Value Reference Range Interpretation Comments UA COLOR (test code = COLU) YELLOW YELLOW UA APPEARANCE (test code = APPU) CLEAR CLEAR UA GLUCOSE DIPSTICK (test code = DGLUU) norm mg/dL NEGATIVE UA BILIRUBIN DIPSTICK (test code = BILU) NEGATIVE mg/dL NEGATIVE UA KETONE DIPSTICK (test code = KETU) neg mg/dL NEGATIVE UA SPECIFIC GRAVITY (test code = SGU) 1.015 1.001-1.035 UA BLOOD DIPSTICK (test code = ARASH) neg Yan/uL NEGATIVE UA PH DIPSTICK (test code = KATIE) 6.0 5.0-8.0 UA PROTEIN DIPSTICK (test code = PROU) neg mg/dL Neg-15 UA UROBILINIOGEN DIPSTICK (test code = URO) norm mg/dL 0.0-0.2 UA NITRITE DIPSTICK (test code = JAIRO) NEGATIVE NEGATIVE UA LEUKOCYTE ESTERASE DIPSTICK (test code = LEUU) neg uL NEGA TIVE UA WBC (test code = WBCU) 0-5 per HPF 0-5 UA RBC (test code = RBCU) NONE SEEN per HPF 0-5 UA EPITHELIAL CELLS (test code = EPIU) Few (2-5/hpf) per HPF Few UA BACTERIA (test code = BACU) FEW per HPF NONE Urine Source? Clean CatchDRUGS OF ABUSE SCREEN [id number] 21:05:00* Test Item Value Reference Range Interpretation Comments URN COCAINE (test code = COCAURN) NEGATIVE NEGATIVE URN CANNABINOIDS (test code = CANNABURN) POSITIVE NEGATIVE URN AMPHETAMINE (test code = AMPHETURN) POSITIVE NEGATIVE URN BARBITURATE (test code = BARBITURN) NEGATIVE NEGATIVE URN BENZODIAZEPINE (test code = BENZOURN) NEGATIVE NEGATIVE URN OPIATES (test code = OPIATURN) NEGATIVE NEGATIVE URN PHENCYCLIDINE (PCP) (test code = PHENCURN) NEGATIVE NEGATIV E Urine Source? Clean CatchBASIC METABOLIC [id number] 21:05:00* Test Item Value Reference Range Interpretation Comments SODIUM (test code = NA) 141 mmol/L 136-145 N POTASSIUM (test code = K) 3.6 mmol/L 3.5-5.1 N CHLORIDE (test code = CL) 103 mmol/L 101-109 N CARBON DIOXIDE (test code = CO2) 28.0 mmol/L 21-32 N ANION GAP (test code = GAP) 14 mmol/L 10-20 N GLUCOSE (test code = GLU) 185 mg/dL 74-106 H BLOOD UREA NITROGEN (test code = BUN) 11 mg/dL 3-21 N GLOMERULAR FILTRATION RATE (test code = GFR) > 60 mL/min >=60 Estimated GFR by using Modified MDRD formula.Chronic kidney disease is defined as either kidney damageor GFR <60 mL/min/1.73 m2 for >3 months. CREATININE (test code = CREAT) 0.80 mg/dL 0.55-1.3 N BUN/CREATININE RATIO (test code = BUN/CREA) 13.8 10-20 N CALCIUM (test code = CA) 8.6 mg/dL 8.4-10.2 N HEPATIC FUNCTION [id number] 21:05:00* Test Item Value Reference Range Interpretation Comments TOTAL PROTEIN (test code = PROT) 7.4 g/dL 6.5-8.4 N ALBUMIN (test code = ALB) 3.2 g/dL 3.4-4.8 L GLOBULIN (test code = GLOB) 4.2 G/DL 1-10 N ALBUMIN/GLOBULIN RATIO (test code = A/G) 0.76 RATIO 0.75-1.50 N BILIRUBIN TOTAL (test code = BILT) 0.20 mg/dL 0.0-1.0 N BILIRUBIN DIRECT (test code = BILD) 0.00 mg/dL 0.0-0.30 N SGOT/AST (test code = AST) 15 U/L 6-32 N SGPT/ALT (test code = ALT) 17 U/L 12-78 N N ote: Change in REFERENCE RANGE due to new reagent method. ALKALINE PHOSPHATASE TOTAL (test code = ALKP) 130 U/L 38-126 H [id number] 21:05:00* Test Item Value Reference Range Interpretation Comments LIPASE (test code = LIP) 147 U/L 128-270 N [id number] 21:05:00* Test Item Value Reference Range Interpretation Comments TROPONIN-I (test code = TROPI) <0.015 ng/mL 0.00-0.056 N URINALYSIS [id number] 21:03:00* Test Item Value Reference Range Interpretation Comments UA COLOR (test code = COLU) YELLOW YELLOW UA APPEARANCE (test code = APPU) CLEAR CLEAR UA GLUCOSE DIPSTICK (test code = DGLUU) norm mg/dL NEGATIVE UA BILIRUBIN DIPSTICK (test code = BILU) NEGATIVE mg/dL NEGATIVE UA KETONE DIPSTICK (test code = KETU) neg mg/dL NEGATIVE UA SPECIFIC GRAVITY (test code = SGU) 1.015 1.001-1.035 UA BLOOD DIPSTICK (test code = ARASH) neg Yan/uL NEGATIVE UA PH DIPSTICK (test code = KATIE) 6.0 5.0-8.0 UA PROTEIN DIPSTICK (test code = PROU) neg mg/dL Neg-15 UA UROBILINIOGEN DIPSTICK (test code = URO) norm mg/dL 0.0-0.2 UA NITRITE DIPSTICK (test code = JAIRO) NEGATIVE NEGATIVE UA LEUKOCYTE ESTERASE DIPSTICK (test code = LEUU) neg uL NEGA TIVE UA WBC (test code = WBCU) 0-5 per HPF 0-5 UA RBC (test code = RBCU) NONE SEEN per HPF 0-5 UA EPITHELIAL CELLS (test code = EPIU) Few (2-5/hpf) per HPF Few UA BACTERIA (test code = BACU) FEW per HPF NONE Urine Source? Clean CatchDRUGS OF ABUSE SCREEN [id number] 21:03:00* Test Item Value Reference Range Interpretation Comments URN COCAINE (test code = COCAURN) NEGATIVE URN CANNABINOIDS (test code = CANNABURN) NEGATIVE URN AMPHETAMINE (test code = AMPHETURN) NEGATIVE URN BARBITURATE (test code = BARBITURN) NEGATIVE URN BENZODIAZEPINE (test code = BENZOURN) NEGATIVE URN OPIATES (test code = OPIATURN) NEGATIVE URN PHENCYCLIDINE (PCP) (test code = PHENCURN) NEGATIV E Urine Source? Clean CatchCBC W/AUTO [id number] 20:59:00* Test Item Value Reference Range Interpretation Comments WHITE BLOOD CELL (test code = WBC) 11.2 K/mm3 4.5-12.5 N Previously reported result: TNP K/rn6Ynxlte by: [email or web address] on 03/14/19:2058Previously reported result: 5.0 K/cu0Cvbyai by: V.LAB.CB1 on 03/14/19:2034 RED BLOOD CELL (test code = RBC) 4.04 mill/mm3 3.7-5.2 N Previously reported result: 3.41 mill/qy9Jfehhx by: Hunite.CB1 on 03/14/19:2035 HEMOGLOBIN (test code = HGB) 12.2 gram/dL 11.5-15.5 N Previously reported result: 7.0 gram/dLEdited by: [email or web address] on 03/14/19:2035 HEMATOCRIT (test code = HCT) 37.4 % 36.0-46.0 N Previously reported result: 25.0 %Edited by: [email or web address] on 03/14/19:2035 MEAN CELL VOLUME (test code = MCV) 92.6 fL 80-98 N Previously reported result: 73.3 fLEdited by: [email or web address] on 03/14/19:2035 MEAN CELL HGB (test code = MCH) 30.2 picogram 27.0-33.0 N Previously reported result: 20.5 picogramEdited by: [email or web address] on 03/14/19:2035 MEAN CELL HGB CONCETRATION (test code = MCHC) 32.6 gram/dL 33.0-36. 0 L Previously reported result: 28.0 gram/dLEdited by: [email or web address] on 03/14/19 RED CELL DISTRIBUTION WIDTH (test code = RDW) 12.7 % 11.6-16. 2 N Previously reported result: 22.8 %Edited by: [email or web address] on 03/14/19:2035 RED CELL DISTRIBUTION WIDTH SD (test code = RDW-SD) 43.6 fL 37 .0-51.0 N Previously reported result: 60.2 fLEdited by: [email or web address] on 03/14/19 PLATELET COUNT (test code = PLT) 410 K/mm3 150-450 N Previously reported result: 380 K/am7Drlhby by: [email or web address] on 03/14/19:2036 MEAN PLATELET VOLUME (test code = MPV) 9.1 fL 6.7-11.0 N Previously reported result: 8.6 fLEdited by: [email or web address] on 03/14/19:2036 NEUTROPHIL % (test code = NT%) 63.9 % 39.0-69.0 N LYMPHOCYTE % (test code = LY%) 26.9 % 25.0-55.0 N MONOCYTE % (test code = MO%) 5.7 % 0.0-10.0 N EOSINOPHIL % (test code = EO%) 2.9 % 0.0-5.0 N BASOPHIL % (test code = BA%) 0.3 % 0.0-1.0 N NEUTROPHIL # (test code = NT#) 7.34 K/mm3 1.8-7.7 N LYMPHOCYTE # (test code = LY#) 3.08 K/mm3 1.0-5.0 N MONOCYTE # (test code = MO#) 0.65 K/mm3 0-0.8 N EOSINOPHIL # (test code = EO#) 0.33 K/mm3 0.0-0.5 N BASOPHIL # (test code = BA#) 0.03 K/mm3 0.0-0.2 N MANUAL DIFF REQUIRED (test code = MDIFF) NO BASIC METABOLIC [id number] 20:57:00* Test Item Value Reference Range Interpretation Comments SODIUM (test code = NA) 141 mmol/L 136-145 N POTASSIUM (test code = K) 3.6 mmol/L 3.5-5.1 N CHLORIDE (test code = CL) 103 mmol/L 101-109 N CARBON DIOXIDE (test code = CO2) 28.0 mmol/L 21-32 N ANION GAP (test code = GAP) 14 mmol/L 10-20 N GLUCOSE (test code = GLU) 185 mg/dL 74-106 H BLOOD UREA NITROGEN (test code = BUN) 11 mg/dL 3-21 N GLOMERULAR FILTRATION RATE (test code = GFR) > 60 mL/min >=60 Estimated GFR by using Modified MDRD formula.Chronic kidney disease is defined as either kidney damageor GFR <60 mL/min/1.73 m2 for >3 months. CREATININE (test code = CREAT) 0.80 mg/dL 0.55-1.3 N BUN/CREATININE RATIO (test code = BUN/CREA) 13.8 10-20 N CALCIUM (test code = CA) 8.6 mg/dL 8.4-10.2 N HEPATIC FUNCTION [id number] 20:57:00* Test Item Value Reference Range Interpretation Comments TOTAL PROTEIN (test code = PROT) gram/dL 6.4-8.2 ALBUMIN (test code = ALB) g/dL 3.4-5.0 GLOBULIN (test code = GLOB) g/dL 2.7-4.2 ALBUMIN/GLOBULIN RATIO (test code = A/G) 0.75-1.50 BILIRUBIN TOTAL (test code = BILT) mg/dL 0.2-1.2 BILIRUBIN DIRECT (test code = BILD) mg/dL 0.0-0.20 SGOT/AST (test code = AST) IUnit/L 15-37 SGPT/ALT (test code = ALT) U/L 10-69 ALKALINE PHOSPHATASE TOTAL (test code = ALKP) IUnit/L 45-117 [id number] 20:57:00* Test Item Value Reference Range Interpretation Comments LIPASE (test code = LIP) Unit/L 144-286 [id number] 20:57:00* Test Item Value Reference Range Interpretation Comments TROPONIN-I (test code = TROPI) ng/mL 0-0.045 CBC W/AUTO [id number] 20:49:00* Test Item Value Reference Range Interpretation Comments WHITE BLOOD CELL (test code = WBC) TEST NOT PERFORMED K/mm3 4.5-12. 5 N Previously reported result: 5.0 K/ls9Vxrmrn by: Hunite.TrueAbility on 03/14/19 RED BLOOD CELL (test code = RBC) 4.04 mill/mm3 3.7-5.2 N Previously reported result: 3.41 mill/fh8Hegdeu by: [email or web address] on 03/14/19 HEMOGLOBIN (test code = HGB) 12.2 gram/dL 11.5-15.5 N Previously reported result: 7.0 gram/dLEdited by: [email or web address] on 03/14/19 HEMATOCRIT (test code = HCT) 37.4 % 36.0-46.0 N Previously reported result: 25.0 %Edited by: Hunite.TrueAbility on 03/14/19 MEAN CELL VOLUME (test code = MCV) 92.6 fL 80-98 N Previously reported result: 73.3 fLEdited by: [email or web address] on 03/14/19 MEAN CELL HGB (test code = MCH) 30.2 picogram 27.0-33.0 N Previously reported result: 20.5 picogramEdited by: [email or web address] on 03/14/19 MEAN CELL HGB CONCETRATION (test code = MCHC) 32.6 gram/dL 33.0-36. 0 L Previously reported result: 28.0 gram/dLEdited by: HuniteAnjuTrueAbility on 03/14/19 RED CELL DISTRIBUTION WIDTH (test code = RDW) 12.7 % 11.6-16. 2 N Previously reported result: 22.8 %Edited by: HuniteAnjuTrueAbility on 03/14/19:2035 RED CELL DISTRIBUTION WIDTH SD (test code = RDW-SD) 43.6 fL 37 .0-51.0 N Previously reported result: 60.2 fLEdited by: HuniteAnjuTrueAbility on 03/14/19 PLATELET COUNT (test code = PLT) 410 K/mm3 150-450 N Previously reported result: 380 K/nt0Kcaxzk by: HuniteAnjuTrueAbility on 03/14/19:2036 MEAN PLATELET VOLUME (test code = MPV) 9.1 fL 6.7-11.0 N Previously reported result: 8.6 fLEdited by: HuniteAnjuTrueAbility on 03/14/19 NEUTROPHIL % (test code = NT%) 63.9 % 39.0-69.0 N LYMPHOCYTE % (test code = LY%) 26.9 % 25.0-55.0 N MONOCYTE % (test code = MO%) 5.7 % 0.0-10.0 N EOSINOPHIL % (test code = EO%) 2.9 % 0.0-5.0 N BASOPHIL % (test code = BA%) 0.3 % 0.0-1.0 N NEUTROPHIL # (test code = NT#) 7.34 K/mm3 1.8-7.7 N LYMPHOCYTE # (test code = LY#) 3.08 K/mm3 1.0-5.0 N MONOCYTE # (test code = MO#) 0.65 K/mm3 0-0.8 N EOSINOPHIL # (test code = EO#) 0.33 K/mm3 0.0-0.5 N BASOPHIL # (test code = BA#) 0.03 K/mm3 0.0-0.2 N MANUAL DIFF REQUIRED (test code = MDIFF) NO CBC W/O [id number] 20:37:00* Test Item Value Reference Range Interpretation Comments WHITE BLOOD CELL (test code = WBC) TEST NOT PERFORMED K/mm3 4.5-12. 5 N Previously reported result: 5.0 K/sr1Crjgzh by: V.[email or web address] on 03/14/19 CBC W/AUTO [id number] 20:37:00* Test Item Value Reference Range Interpretation Comments WHITE BLOOD CELL (test code = WBC) TEST NOT PERFORMED K/mm3 4.5-12. 5 N Previously reported result: 5.0 K/xs3Klrzik by: V.[email or web address] on 03/14/19 NEUTROPHIL % (test code = NT%) % 39.0-69.0 LYMPHOCYTE % (test code = LY%) % 25.0-55.0 MONOCYTE % (test code = MO%) % 0.0-10.0 EOSINOPHIL % (test code = EO%) % 0.0-5.0 BASOPHIL % (test code = BA%) % 0.0-1.0 NEUTROPHIL # (test code = NT#) K/mm3 1.8-7.7 LYMPHOCYTE # (test code = LY#) K/mm3 1.0-5.0 MONOCYTE # (test code = MO#) K/mm3 0-0.8 EOSINOPHIL # (test code = EO#) K/mm3 0.0-0.5 BASOPHIL # (test code = BA#) K/mm3 0.0-0.2 CBC W/O [id number] 20:33:00* Test Item Value Reference Range Interpretation Comments WHITE BLOOD CELL (test code = WBC) 5.0 K/mm3 4.5-12.5 N RED BLOOD CELL (test code = RBC) 3.41 mill/mm3 3.7-5.2 L HEMOGLOBIN (test code = HGB) 7.0 gram/dL 11.5-15.5 L HEMATOCRIT (test code = HCT) 25.0 % 36.0-46.0 L MEAN CELL VOLUME (test code = MCV) 73.3 fL 80-98 L MEAN CELL HGB (test code = MCH) 20.5 picogram 27.0-33.0 L MEAN CELL HGB CONCETRATION (test code = MCHC) 28.0 gram/dL 33.0-36. 0 L RED CELL DISTRIBUTION WIDTH (test code = RDW) 22.8 % 11.6-16. 2 H RED CELL DISTRIBUTION WIDTH SD (test code = RDW-SD) 60.2 fL 37 .0-51.0 H PLATELET COUNT (test code = PLT) 380 K/mm3 150-450 N MEAN PLATELET VOLUME (test code = MPV) 8.6 fL 6.7-11.0 N - CT HEAD/BRAIN W/O [id number] 08:45:00 Name: JOEL WILSON [facility] : 1970 Age/S: 48 / F [address] Unit #: [id number] Loc: [place] [address] Phys: Victor M Farrar MD Acct: [id number] Dis Date: Status: REG ER PHONE #: [phone] Exam Date: 02/10/2019812 FAX #: [phone] Reason: Headache EXAMS: CPT CODE: [id number] CT HEAD/BRAIN W/O CONT 72374 TECHNIQUE: - CT HEAD/BRAIN W/O CONT . This exam was performed using one or more of the following dose reduction techniques: Automated exposure control, adjustment of the mA and/ or kV according to patient size or use of iterative reconstruction technique. COMPARISON: None provided. HISTORY: 48 years Female Headache FINDINGS: Supra tentorial compartment and Posterior fossa: No hemorrhage. No intra-axial mass. No midline shift. Extra-axial structures: No hematoma, fluid collection, or mass. Ventricles and Basal Cisterns: No hydrocephalus. Basal cisterns are normal. Visualized Orbits: No abnormalities. Visualized Osseous structures: Within normal limits. Visualized paranasal Sinuses: Mucosal thickening paranasal sinuses. Other: None. IMPRESSION: No intracranial hemorrhage. at 0845 Reported and signed by: Dandre Ron M.D. PAGE 1 Signed Re port (CONTINUED) Name: JOEL WILSON [facility] : 1970 Age/S: 48 / F [address] Unit #: [id number] Loc: [place] [address] Phys: Victor M Farrar MD Acct: [id number] Dis Date: Status: REG ER PHONE #: [phone] Exam Date: 02/10/2019812 FAX #: [phone] Reason: Headache EXAMS: CP T CODE: [id number] CT HEAD/BRAIN W/O CONT 35812 <Continued> CC: Victor M Farrar MD; Halina Mooney M.D. Technologist:Vincenzo Sahni RT(R),(MR),(CT); CTDI: DLP: Trnscb Date/Time: 02/10/2019 (0845) t.SDR.SOL Orig Print D/T: S: 02/10/2019 (8849) PAGE 2 Signed Report - XR CHEST 1 [id number] 08:35:00 FAX: Victor M Farrar MD [phone] [place]: St: REG FAX: Lux Bishop MD [phone] Name: JOEL WILSON [facility] : 1970 Age/S: 48/F [address] [facility] Unit #: [id number] Loc: [place] [address] Phys: Victor M Farrar MD Acct: [id number] Dis Date: Status: REG ER PHONE #: [phone] Exam Date: 02/10/2019820 FAX #: [phone] Reason: chest pain EXAMS: CPT CODE: [id number] XR CHEST 1 V 89983 TECHNIQUE - XR CHEST 1 V . COMPARISON: None provided. HISTORY: 48 years Female chest pain FINDINGS: Lungs: No nodules. No air space or interstitial lung disease. Lungs are normal in volume. Mediastinum and yue: No enlargement or other mass. Cardiovascular structures: No cardiomegaly. No abnormalities in vascular structures. Pleura/CP angles: Clear. No pneumothorax. Bones: No osseous abnormalities. Soft tissues: No abnormalities. Tubes and lines: None. Other: None. IMPRESSION: No acute cardiopulmonary abnormalities. at 0835 Reported and signed by: Dandre Ron M.D. CC: Victor M Farrar MD; Halina Mooney M.D. Technologist: Jovanna Payne(R); Genny MONACO(R); ... Trnscrd Date/Time/By: 02/10/2019 (0835) : By: Peña Orig Print D/T: S: 02/10/2019 (0895) PAGE 1 Signed Report BASIC METABOLIC [id number] 08:25:00* Test Item Value Reference Range Interpretation Comments SODIUM (test code = NA) 140 mmol/L 136-145 N POTASSIUM (test code = K) 4.1 mmol/L 3.5-5.1 N CHLORIDE (test code = CL) 107.0 mmol/L 98-107 N CARBON DIOXIDE (test code = CO2) 26.0 mmol/L 21-32 N ANION GAP (test code = GAP) 11.1 10-20 N GLUCOSE (test code = GLU) 171 mg/dL 74-106 H BLOOD UREA NITROGEN (test code = BUN) 15 mg/dL 7-18 N GLOMERULAR FILTRATION RATE (test code = GFR) > 60 mL/min >=60 Estimated GFR by using Modified MDRD formula.Chronic kidney disease is defined as either kidney damageor GFR <60 mL/min/1.73 m2 for >3 months. CREATININE (test code = CREAT) 0.80 mg/dL 0.55-1.02 N Note change in reference range due to change in reagent. BUN/CREATININE RATIO (test code = BUN/CREA) 18.8 10-20 N CALCIUM (test code = CA) 9.0 mg/dL 8.5-10.1 N BASIC METABOLIC [id number] 08:19:00* Test Item Value Reference Range Interpretation Comments SODIUM (test code = NA) 140 mmol/L 136-145 N POTASSIUM (test code = K) 4.1 mmol/L 3.5-5.1 N CHLORIDE (test code = CL) 107.0 mmol/L 98-107 N CARBON DIOXIDE (test code = CO2) mmol/L 21-32 ANION GAP (test code = GAP) 10-20 GLUCOSE (test code = GLU) mg/dL 74-106 BLOOD UREA NITROGEN (test code = BUN) mg/dL 7-18 GLOMERULAR FILTRATION RATE (test code = GFR) mL/min >=60 CREATININE (test code = CREAT) mg/dL 0.55-1.02 BUN/CREATININE RATIO (test code = BUN/CREA) 10-20 CALCIUM (test code = CA) 9.0 mg/dL 8.5-10.1 N BASIC METABOLIC [id number] 08:18:00* Test Item Value Reference Range Interpretation Comments SODIUM (test code = NA) 140 mmol/L 136-145 N POTASSIUM (test code = K) 4.1 mmol/L 3.5-5.1 N CHLORIDE (test code = CL) 107.0 mmol/L 98-107 N CARBON DIOXIDE (test code = CO2) mmol/L 21-32 ANION GAP (test code = GAP) 10-20 GLUCOSE (test code = GLU) mg/dL 74-106 BLOOD UREA NITROGEN (test code = BUN) mg/dL 7-18 GLOMERULAR FILTRATION RATE (test code = GFR) mL/min >=60 CREATININE (test code = CREAT) mg/dL 0.55-1.02 BUN/CREATININE RATIO (test code = BUN/CREA) 10-20 CALCIUM (test code = CA) mg/dL 8.5-10.1 CBC W/AUTO [id number] 08:15:00* Test Item Value Reference Range Interpretation Comments WHITE BLOOD CELL (test code = WBC) 14.5 K/mm3 4.5-12.5 H RED BLOOD CELL (test code = RBC) 3.94 mill/mm3 3.7-5.2 N HEMOGLOBIN (test code = HGB) 12.1 gram/dL 11.5-15.5 N HEMATOCRIT (test code = HCT) 36.7 % 36.0-46.0 N MEAN CELL VOLUME (test code = MCV) 93.1 fL 80-98 N MEAN CELL HGB (test code = MCH) 30.7 picogram 27.0-33.0 N MEAN CELL HGB CONCETRATION (test code = MCHC) 33.0 gram/dL 33.0-36. 0 N RED CELL DISTRIBUTION WIDTH (test code = RDW) 12.6 % 11.6-16. 2 N RED CELL DISTRIBUTION WIDTH SD (test code = RDW-SD) 43.3 fL 37 .0-51.0 N PLATELET COUNT (test code = PLT) 365 K/mm3 150-450 N MEAN PLATELET VOLUME (test code = MPV) 9.3 fL 6.7-11.0 N NEUTROPHIL % (test code = NT%) 69.7 % 39.0-69.0 H IMMATURE GRANULOCYTE % (test code = IG%) 0.6 % 0.0-5.0 N LYMPHOCYTE % (test code = LY%) 21.2 % 25.0-55.0 L MONOCYTE % (test code = MO%) 4.8 % 0.0-10.0 N EOSINOPHIL % (test code = EO%) 3.0 % 0.0-5.0 N BASOPHIL % (test code = BA%) 0.7 % 0.0-1.0 N NUCLEATED RBC % (test code = NRBC%) 0.0 % 0-0 N NEUTROPHIL # (test code = NT#) 10.07 K/mm3 1.8-7.7 H IMMATURE GRANULOCYTE # (test code = IG#) 0.09 x10 3/uL 0-0.03 H LYMPHOCYTE # (test code = LY#) 3.07 K/mm3 1.0-5.0 N MONOCYTE # (test code = MO#) 0.70 K/mm3 0-0.8 N EOSINOPHIL # (test code = EO#) 0.43 K/mm3 0.0-0.5 N BASOPHIL # (test code = BA#) 0.10 K/mm3 0.0-0.2 N NUCLEATED RBC # (test code = NRBC#) 0.00 K/mm3 0.0-0.1 N MANUAL DIFF REQUIRED (test code = MDIFF) NO Urine [id number] 17:47:00* Test Item Value Reference Range Interpretation Comments Urine WBC (test code = 5821-4) NONE 0-5 [facility] [id number] 17:47:00* Test Item Value Reference Range Interpretation Comments Urine RBC (test code = 90123-6) NONE 0-5 [facility] [id number] 17:47:00* Test Item Value Reference Range Interpretation Comments Urine Bacteria (test code = 64493-6) NONE NONE [facility] Epithelial [id number] 17:47:00 * Test Item Value Reference Range Interpretation Comments Urine Epithelial Cells (test code = 06012-3) MODERATE NONE [facility] [id number] 17:38:00* Test Item Value Reference Range Interpretation Comments Urine Color (test code = 5778-6) YELLOW YELLOW [facility] [id number] 17:38:00* Test Item Value Reference Range Interpretation Comments Urine Clarity (test code = 88195-6) SL CLOUDY CLEAR [facility] Center[facility] Specific [id number] 17:38:00 * Test Item Value Reference Range Interpretation Comments Urine Specific [place] (test code = 5811-5) 1.010 1.010-1.02 5 [facility] Center[facility] [id number] 17:38:00* Test Item Value Reference Range Interpretation Comments Urine pH (test code = 08903-1) 7 5-7 [facility] Leukocyte [id number] 17:38:00* Test Item Value Reference Range Interpretation Comments Urine Leukocyte Esterase (test code = 5799-2) NEGATIVE NEGATIVE [facility] Center[facility] [id number] 17:38:00* Test Item Value Reference Range Interpretation Comments Urine Nitrite (test code = 97259-4) NEGATIVE NEGATIVE [facility] [id number] 17:38:00* Test Item Value Reference Range Interpretation Comments Urine Protein (test code = 5804-0) NEGATIVE NEGATIVE [facility] Glucose (UA)2019-01-06 17:38:00* Test Item Value Reference Range Interpretation Comments Urine Glucose (UA) (test code = 2349-9) NEGATIVE NEGATIVE [facility] Center[facility] [id number] 17:38:00* Test Item Value Reference Range Interpretation Comments Urine Ketones (test code = 62024-9) NEGATIVE NEGATIVE [facility] Center[facility] Opiates [id number] 17:38:00* Test Item Value Reference Range Interpretation Comments Urine Opiates Screen (test code = 45331-3) NEGATIVE NEGATIVE ALL TESTS PERFORMED MANUALLY ON Voxound TOX/SEE TESTCHRISTUS [facility] CenterUrine Barbiturates [id number] 17:38:00* Test Item Value Reference Range Interpretation Comments Urine Barbiturates Screen (test code = 141197429) NEGATIVE NEGA TIVE [facility] Center[facility] Phencyclidine [id number] 17:38:00* Test Item Value Reference Range Interpretation Comments Urine Phencyclidine Screen (test code = 89225-3) NEGATIVE NEGAT MARIBEL [facility] Center[facility] Amphetamines [id number] 17:38:00* Test Item Value Reference Range Interpretation Comments Urine Amphetamines Screen (test code = 58281-7) POSITIVE NEGATI VE H This test provides only a screen. Positive results should be repeated by a confi rmatory test.[facility] Center[facility] Methamphetamines [id number] 17:38:00* Test Item Value Reference Range Interpretation Comments Urine Methamphetamines Screen (test code = Urine Metha mphetamines Screen) POSITIVE NEGATIVE H This test provides only a screen. Positive results should be repeated by a confi rmatory test.[facility] Center[facility] Benzodiazepines Screen 2019-01-06 17:38:00* Test Item Value Reference Range Interpretation Comments Urine Benzodiazepines Screen (test code = 29944-6) POSITIVE NEG ATIVE H This test provides only a screen. Positive results should be repeated by a confi rmatory test.[facility] Center[facility] Cocaine Screen 2019-01-06 17:38:00* Test Item Value Reference Range Interpretation Comments Urine Cocaine Screen (test code = 3398-5) NEGATIVE NEGATIVE [facility] Center[facility] Cannabinoids [id number] 17:38:00* Test Item Value Reference Range Interpretation Comments Urine Cannabinoids Screen (test code = 59556-4) NEGATIVE NEGATI VE THESE RESULTS ARE FOR MEDICAL TREATMENT ONLYTHIS REPORT CONTAINS UNCONFIR MED SCREENING RESULTS*POSITIVE RESULTS WILL BE CONFIRMED BY REFERENCE LAB UPON R EQUEST CUT-OFFDRUG CLASS CONCENTRATION ng/mLAmphetamines 1000Methamphetamines 1000Cocaine 300Opiate 300Phencyc lidine 25Cannabinoid 50Barbiturates 300Benzodiazepine 300Methadone 300[facility] Center[facility] Methadone [id number] 17:38:00* Test Item Value Reference Range Interpretation Comments Urine Methadone Screen (test code = 24230-7) NEGATIVE NEGATIVE THESE RESULTS ARE FOR MEDICAL TREATMENT ONLYTHIS REPORT CONTAINS UNCONFIR MED SCREENING RESULTS*POSITIVE RESULTS WILL BE CONFIRMED BY REFERENCE LAB UPON R EQUEST CUT-OFFDRUG CLASS CONCENTRATION ng/mLAmphetamines 1000Methamphetamines 1000Cocaine Metabolite 300Opiate 300Phencyc lidine 25Cannabinoid 50Barbiturates 300Benzodiazepine 300Methadone 300[facility] Ticsjkldkcdk2100-23-01 17:38:00* Test Item Value Reference Range Interpretation Comments Urine Urobilinogen (test code = 41124-1) 0.2 0.2-1 [facility] Center[facility] [id number] 17:38:00* Test Item Value Reference Range Interpretation Comments Urine Bilirubin (test code = 1978-6) NEGATIVE NEGATIVE [facility] Center[facility] [id number] 17:38:00* Test Item Value Reference Range Interpretation Comments Urine Blood (test code = 74211-2) NEGATIVE NEGATIVE [facility] [id number] 16:51:00* Test Item Value Reference Range Interpretation Comments Sodium Level (test code = 2951-2) 136 136-145 [facility] CenterPotassium [id number] 16:51:00* Test Item Value Reference Range Interpretation Comments Potassium Level (test code = 2823-3) 4.2 3.5-5.1 [facility] CenterChloride Cyima9764-03-19 16:51:00* Test Item Value Reference Range Interpretation Comments Chloride Level (test code = 2075-0) 101 98-107 [facility] CenterCarbon Dioxide [id number] 16:51:00* Test Item Value Reference Range Interpretation Comments Carbon Dioxide Level (test code = 2028-9) 26 22-29 [facility] CenterAnion [id number] 16:51:00* Test Item Value Reference Range Interpretation Comments Anion Gap (test code = 96601-5) 13.2 8-16 [facility] CenterBlood Urea [id number] 16:51:00* Test Item Value Reference Range Interpretation Comments Blood Urea Nitrogen (test code = 3094-0) 12 03-20 [facility] CenterCreatinine2019-05-14 16:51:00* Test Item Value Reference Range Interpretation Comments Creatinine (test code = 2160-0) 0.81 0.57-1.11 [facility] CenterBUN/Creatinine Qoiii5757-55-45 16:51:00* Test Item Value Reference Range Interpretation Comments BUN/Creatinine Ratio (test code = 3097-3) 15 02-17 [facility] CenterEstimat Glomerular Filtration Rate 2019-01-06 16:51:00* Test Item Value Reference Range Interpretation Comments Estimat Glomerular Filtration Rate (test code = 545155932) > 60 >60 Ranges were taken from the National Kidney Disease Education Program and the [facility] literature.Reference ranges:60 or greater: [id number] ( for 3 consecutive months): Chronic kidney disease 15 or less: Kidney failureCHRISTUS [facility] – Medical CenterGlucose [id number] 16:51:00* Test Item Value Reference Range Interpretation Comments Glucose Level (test code = SFH2875) 130 74-118 H [facility] CenterCalcium [id number] 16:51:00* Test Item Value Reference Range Interpretation Comments Calcium Level (test code = 77208-4) 9.9 8.4-10.2 [facility] CenterTotal [id number] 16:51:00* Test Item Value Reference Range Interpretation Comments Total Bilirubin (test code = 1975-2) 0.2 0.2-1.2 [facility] CenterAspartate Amino Transf (AST/SGOT) 2019-01-06 16:51:00* Test Item Value Reference Range Interpretation Comments Aspartate Amino Transf (AST/SGOT) (test code = Aspartate Amino Transf (AST/SGOT)) 11 5-34 [facility] CenterAlanine Aminotransferase (ALT/SGPT) 2019-01-06 16:51:00* Test Item Value Reference Range Interpretation Comments Alanine Aminotransferase (ALT/SGPT) (test code = 1742-6) 22 0-55 [facility] CenterTotal [id number] 16:51:00* Test Item Value Reference Range Interpretation Comments Total Protein (test code = 2885-2) 7.8 6.5-8.1 [facility] CenterAlbumin2019-05-14 16:51:00* Test Item Value Reference Range Interpretation Comments Albumin (test code = 1751-7) 3.6 3.5-5.0 [facility] CenterGlobulin2019-05-14 16:51:00* Test Item Value Reference Range Interpretation Comments Globulin (test code = 67834-6) 4.2 2.3-3.5 H [facility] CenterAlbumin/Globulin Sgumr7184-28-00 16:51:00 * Test Item Value Reference Range Interpretation Comments Albumin/Globulin Ratio (test code = 1759-0) 0.9 0.8-2.0 [facility] CenterAlkaline Fpguidkdfjh4388-01-82 16:51:00* Test Item Value Reference Range Interpretation Comments Alkaline Phosphatase (test code = 6768-6) 144 40-150 [facility] CenterWhite Blood Ngqzc8131-56-24 16:40:00* Test Item Value Reference Range Interpretation Comments White Blood Count (test code = 6690-2) 11.10 4.8-10.8 H [facility] CenterRed Blood Qvkfs2659-04-74 16:40:00* Test Item Value Reference Range Interpretation Comments Red Blood Count (test code = 789-8) 4.23 3.6-5.1 [facility] CenterHemoglobin2019-05-14 16:40:00* Test Item Value Reference Range Interpretation Comments Hemoglobin (test code = 09707-7) 13.1 12.0-16.0 [facility] CenterHematocrit2019-05-14 16:40:00* Test Item Value Reference Range Interpretation Comments Hematocrit (test code = 4544-3) 38.6 34.2-44.1 [facility] CenterMean Corpuscular Bngxlm5270-62-92 16:40:00* Test Item Value Reference Range Interpretation Comments Mean Corpuscular Volume (test code = 787-2) 91.3 81-99 [facility] CenterMean Corpuscular Ncqqbjdckm4176-83-28 16:40:00* Test Item Value Reference Range Interpretation Comments Mean Corpuscular Hemoglobin (test code = 785-6) 31.0 28-32 [facility] CenterMean Corpuscular Hemoglobin Concent 2019-01-06 16:40:00* Test Item Value Reference Range Interpretation Comments Mean Corpuscular Hemoglobin Concent (test code = 786-4) 33.9 31-35 [facility] CenterRed Cell Distribution Mtcuc6918-42-62 16:40:00* Test Item Value Reference Range Interpretation Comments Red Cell Distribution Width (test code = 07582-1) 12.6 11.7 -14.4 [facility] CenterPlatelet Jsqvr1227-54-66 16:40:00* Test Item Value Reference Range Interpretation Comments Platelet Count (test code = 777-3) 423 140-360 H [facility] CenterNeutrophils (%) (Auto)2019-01-06 16:40:00 * Test Item Value Reference Range Interpretation Comments Neutrophils (%) (Auto) (test code = 89407-0) 59.9 38.7-80.0 [facility] CenterLymphocytes (%) (Auto)2019-01-06 16:40:00 * Test Item Value Reference Range Interpretation Comments Lymphocytes (%) (Auto) (test code = 736-9) 30.9 18.0-39.1 [facility] CenterMonocytes (%) (Auto)2019-01-06 16:40:00* Test Item Value Reference Range Interpretation Comments Monocytes (%) (Auto) (test code = 5905-5) 5.2 4.4-11.3 [facility] CenterEosinophils (%) (Auto)2019-01-06 16:40:00 * Test Item Value Reference Range Interpretation Comments Eosinophils (%) (Auto) (test code = 713-8) 2.9 0.0-6.0 [facility] CenterBasophils (%) (Auto)2019-01-06 16:40:00* Test Item Value Reference Range Interpretation Comments Basophils (%) (Auto) (test code = 706-2) 0.6 0.0-1.0 [facility] CenterIM GRANULOCYTES %2019-01-06 16:40:00* Test Item Value Reference Range Interpretation Comments IM GRANULOCYTES % (test code = IM GRANULOCYTES %) 0.5 0.0- 1.0 [facility] CenterNeutrophils # (Auto)2019-01-06 16:40:00* Test Item Value Reference Range Interpretation Comments Neutrophils # (Auto) (test code = 751-8) 6.6 2.1-6.9 [facility] CenterLymphocytes # (Auto)2019-01-06 16:40:00* Test Item Value Reference Range Interpretation Comments Lymphocytes # (Auto) (test code = 09101-0) 3.4 1.0-3.2 H [facility] CenterMonocytes # (Auto)2019-01-06 16:40:00* Test Item Value Reference Range Interpretation Comments Monocytes # (Auto) (test code = 742-7) 0.6 0.2-0.8 [facility] CenterEosinophils # (Auto)2019-01-06 16:40:00* Test Item Value Reference Range Interpretation Comments Eosinophils # (Auto) (test code = 711-2) 0.3 0.0-0.4 [facility] CenterBasophils # (Auto)2019-01-06 16:40:00* Test Item Value Reference Range Interpretation Comments Basophils # (Auto) (test code = 704-7) 0.1 0.0-0.1 [facility] CenterAbsolute Immature Granulocyte (auto 2019-01-06 16:40:00* Test Item Value Reference Range Interpretation Comments Absolute Immature Granulocyte (auto (nathen t code = Absolute Immature Granulocyte (auto) 0.06 0-0.1 [facility] CenterURINE AND MOUFF1507-88-99 01:22:00 Negative (06/06/16 8:22 PM)[facility]annCARDIAC ZHUMMXU5576-51-80 01:13:00< 0.02[facility]annCHEM AXBTK3415-97-03 01:12:94523Teturepx HermannCHEM PANEL 2016-06-07 01:12:0092[facility] HermannCHEM GIVQC6410-92-53 01:12:99783Lowrkmxh HermannCHEM PXSAN3905-75-98 01:12:000.78[facility]annCHEM NQOVH1918-21-13 01:12:0017[facility]annCHEM IKEZJ1916-87-60 01:12:003.7[facility]annCHEM VTTZL2817-49-23 01:12:79702Qkwvsqsg HermannCHEM SMOKJ4351-27-81 01:12:0011 [facility]annCHEM ULGUV7698-41-88 01:12:000.3[facility]annCHEM PANEL 2016-06-07 01:12:81457Jnvzyfqb HermannCHEM MPUFZ3297-49-96 01:12:007.8[facility]annCHEM LQDUK8612-28-82 01:12:0021[facility]annCHEM OOXKV5648-29-68 01:12:009.1[facility]annCHEM XVIQK3051-80-97 01:12:0026[facility]annCHEM VGFZD0310-24-09 01:12:003.7[facility]annCHEM SOFOU0683-63-93 01:12:0098 [facility]annCHEM TBEOC7295-43-40 01:12:000.9[facility]annCHEM PANEL 2016-06-07 01:12:004.1[facility]annCHEM JSDXZ4716-99-69 01:12:0022[facility]annCHEM XULQN0292-77-41 01:12:0011.7[facility] EfrqysuPHKXEPUIGQ1951-45-25 01:12:0037.5[facility] SpjldmdNAABHPLGIY9378-20-72 01:12:003.95[facility] PKXYKZKXRB6997-50-15 01:12:0012.6[facility] IqxavsyFLINOBXGET5549-07-90 01:12:00 11.9[facility] PlwfznnRRLEXDZWVI6455-75-61 01:12:00* Test Item Value Reference Range Interpretation Comments MCH (test code = MCH) 31.9 pg 27.0-31.0 [facility] TfdbwfqJVCQQLXSEW4049-08-01 01:12:0094.8[facility] HermannHEMATOLOGY 2016-06-07 01:12:0033.7[facility] HpudsnrCKHOGLKTTB8190-14-70 01:12:0013.4[facility] JixsoziAOIZLAUPTT5757-91-24 01:12:007.6[facility] AjqpnprKPVXXEFHFS1155-85-81 01:12:24685Bytuzznl EwczuxoQUZBQUDWTV3718-43-36 01:12:00* Test Item Value Reference Range Interpretation Comments PTT (test code = PTT) 37.9 s 22.9-35.8 [facility] KpyrcphOBOFLYCGWB7061-85-26 01:12:001.02[facility]annHEMATOLOGY 2016-06-07 01:12:00* Test Item Value Reference Range Interpretation Comments PT (test code = PT) 13.6 s 12.0-14.7 [facility] PfnpuicJFNMNIBWWR8640-77-59 01:12:005.3[facility]annHEMATOLOGY 2016-06-07 01:12:0034.4[facility] ZbnrjrdDGTRVEZSCD0243-15-68 01:12:0056.1[facility] NoxaudgKSLTSXILKD3761-40-71 01:12:003.7[facility] ZsnvvqyVXXOIYIWOR6416-20-71 01:12:000.5[facility] FkygmxlPMDJSTORDA6279-37-02 01:12:006.7[facility] [place] IVABGIFROX2712-06-16 01:12:000.6[facility] KjullipBDEDLLTLAV4729-46-70 01:12:004.1 [facility] GmvoogqWQHFGIGJGM2002-20-38 01:12:000.4[facility]annHEMATOLOGY 2016-06-07 01:12:000.1[facility] HermannCHEM HEXOU4968-56-07 19:02:0076[facility]annCHEM ZMYXE8165-40-51 19:02:009[facility]annCHEM ZVNLT6787-58-69 19:02:000.76[facility] HermannCHEM ZYZWQ3026-69-84 19:02:24936Xxevzgzj HermannCHEM ROYPP4002-53-98 19:02:0025[facility]annCHEM XQSQF6645-63-71 19:02:26199 [facility]annCHEM IWMZO7574-75-90 19:02:004.0[facility] HermannCHEM PANEL 2016-05-27 19:02:000.9[facility] HermannCHEM RFWIK6448-95-16 19:02:0095[facility]annCHEM XACCG6317-70-10 19:02:007.6[facility]annCHEM MMXHJ6450-97-67 19:02:008.7[facility]annCHEM WTLLX1292-68-90 19:02:0020[facility]annCHEM PIMKQ0416-06-51 19:02:003.7[facility] HermannCHEM MKERO2451-56-02 19:02:0012 [facility]annCHEM AHWTK6276-43-48 19:02:00<0.1[facility] HermannCHEM PANEL 2016-05-27 19:02:56906Syxlhgqv HermannCHEM GTUHM6337-45-91 19:02:0012[facility] HermannCHEM PMXRY4807-82-95 19:02:0015.0[facility]annCHEM RJNYX1264-27-64 19:02:003.9[facility]annCHEM QNRDC9328-92-03 19:02:02812Dlzwmzga [place] ICNHBPTJOA4026-71-44 19:02:007.9[facility] MfutlteHZUPIMREML7038-67-98 19:02:00 34.0[facility] KolywmbEHKMBDEYOI7328-10-86 19:02:00* Test Item Value Reference Range Interpretation Comments MCH (test code = MCH) 31.8 pg 27.0-31.0 [facility] EftlyupNWEAZBCSTJ0160-40-29 19:02:0093.7[facility] HermannHEMATOLOGY 2016-05-27 19:02:0037.8[facility] EnnocoqLDSOAEGUMO8436-55-14 19:02:0013.3[facility] ExepqsdOGINEYPUNG9660-56-64 19:02:0012.8[facility] RcuyyqmLWICBVOBWG5473-05-36 19:02:004.03[facility] LrjddhqBYYPPEGJSD0650-88-88 19:02:0011.8[facility] GHIPPGIDLW7825-52-16 19:02:34261Jbgrlzfm AksdseiZSXNTUTECF0705-55-73 19:02:000.1 [facility] VdrtunkQHAMRPJBTD9973-15-87 19:02:000.4[facility] HermannHEMATOLOGY 2016-05-27 19:02:000.5[facility] QiisffdBIOHDXPPLM0403-05-46 19:02:000.7[facility] GsywbsuPSMKNTJZGW4349-94-29 19:02:003.8[facility] PfailivTYYWKAHCQY5409-50-62 19:02:004.0[facility] AuqwatyWORLJRRCFL3614-63-18 19:02:003.9[facility] [place] FZVNXRKFWL0550-53-24 19:02:006.8[facility] EcnnobbPSOAKASHEQ0730-73-31 19:02:00 33.4[facility] OeejnalKCUUCTSTZA7747-69-84 19:02:0058.1[facility]annURINE AND ZOMKC4436-10-87 19:02:001[facility]annUR[facility] AND AXXZL3816-35-55 19:02:001 [facility]UR[facility] AND MTZAV8582-75-60 19:02:00Negative (05/27/16 2:02 PM) [facility]UR[facility] AND QVGCV7243-44-09 19:02:00Negative (05/27/16 2:02 PM) [facility] YAXBB9124-78-81 19:02:000.2[facility]UR[facility] AND NZGYX3455-50-11 19:02:00Negative (05/27/16 2:02 PM)[facility] AND GTHBW8621-00-29 19:02:00Negative *NA*(05/27/16 2:02 PM)[facility] TBNJD8077-13-46 19:02:00Yellow *NA*(05/27/16 2:02 PM)[facility] OBIIJ8251-69-44 19:02:00* Test Item Value Reference Range Interpretation Comments UA Spec Grav (test code = UA Spec Grav) 1.020 1 [facility] AND NKMSJ1211-16-21 19:02:00Clear (05/27/16 2:02 PM) [facility] AND PZNCA7831-58-22 19:02:00* Test Item Value Reference Range Interpretation Comments UA pH (test code = UA pH) 6.0 1 5.0-8.0 [facility]annCT [facility]BD[facility]PELVIS [address] [place] [id number] [place] [address] Patient Name: JOEL WILSON MR #: [id number] : 1970 Age/Sex: 46/F Req #: [id number] Adm Physician: Ordered by: YUN OSUNA Report #: [id number] Location: ER Room/Bed: Procedure: [id number] CT/CT ABDOMEN/PELVIS W Exam Date: 07/15/17 Exam Time: 1726 REPORT STATUS: Signed EXAM: CT Abdomen and Pelvis WITH contrast INDICATION: COMPARISON: None. TECHNIQUE: Abdomen and pelvis were scanned util izing a multidetector helical scanner from the lung base to the pubic symphysi s after administration of IV contrast. Coronal and sagittal reformations were obtained. Routine protocol was performed. Scan was performed when during karla l venous phase. IV CONTRAST: 100 mL of Omnipaque 300 ORAL CONT RAST: Water COMPLICATIONS: None RADIATION DOSE: Tot al DLP: 398.5 mGy*cm Estimated effective dose: (DLP x 0.015 x size factor ) mSv CTDIvol has been reviewed. It is below the limits set by the Radiat ion Protocol Committee (RPC). FINDINGS: LINES and TUBES: None. LOWER THORAX: Unremarkable HEPATOBILIARY: No focal hepatic lesions. N o biliary ductal dilation. GALLBLADDER: Cholecystectomy clips. SPLEEN : No splenomegaly. PANCREAS: No focal masses or ductal dilatation. ADRENALS: No adrenal nodules KIDNEYS/URETERS: Kidneys enhance symmetric ally. No hydronephrosis. No cystic or solid mass lesions. Nonobstructing lef t inferior pole 0.5 cm calculus. GI TRACT: No abnormal distention, wall thi ckening, or evidence of bowel obstruction. Surgical clips in the right l ower quadrant may be related to prior appendectomy. PELVIC ORGANS/BLADDER : Hysterectomy. LYMPH NODES: No lymphadenopathy. VESSELS: Unremarkabl e. PERITONEUM / RETROPERITONEUM: No free air or fluid. Surgical clips in th e pelvis. BONES: L5-S1 fusion. The left S1 screw is proud by approximatel y 1.7 cm. SOFT TISSUES: Unremarkable. IMPRESSION: 1. N o acute abnormalities. 2. Left nephrolithiasis. Signed by: DR. Troy Powell MD on 07/15/2017 7:19 PM Dictated By: TROY POWELL MD [employer] [facility] Signed By: TROY POWELL MD on 07/15/171918 Transcribed By: TRUDI on 1918 COPY TO: YUN OSUNA
[2020-07-13 08:21] LABS: ALANINE AMINOTRANSFERASE 14 IU/L (0-55); ALBUMIN 3.5 g/dL (3.5-5.0); ALBUMIN/GLOBULIN RATIO 0.9 (0.8-2.0); ALKALINE PHOSPHATASE 130 IU/L (40-150); ANION GAP 12.7 mmol/L (8-16); BLOOD UREA NITROGEN 9 mg/dL (7-26); BUN/CREATININE RATIO 11 (6-25); CALCIUM 8.6 mg/dL (8.4-10.2); CARBON DIOXIDE 28 mmol/L (22-29); CHLORIDE 101 mmol/L (98-107); CREATININE, SERUM 0.82 mg/dL (0.57-1.11); EST GLOMERULAR FILTRATION RATE > 60 ML/MIN (60-); GLUCOSE 249 mg/dL (74-118); POTASSIUM 3.7 mmol/L (3.5-5.1); SODIUM 138 mmol/L (136-145)
[2020-07-13 08:34] LABS: LIPASE 22 U/L (8-78)
[2020-07-13] MEDS ORDERED: IOPAMIDOL 370 MG/ML 200 ML INFUS..BTL INJ ONE (08:50)
[2020-07-13] MEDS ORDERED: SODIUM CHLORIDE 0.9% 100 ML ONE (08:50)
[2020-07-13] MEDS ORDERED: FENTANYL CITRATE/PF 100MCG/2 ML INJ IV ONE (09:45)
[2020-07-13 09:48] LABS: BILIRUBIN,URINE NEGATIVE (NEGATIVE); CLARITY,URINE CLEAR (CLEAR); COLOR,URINE YELLOW (YELLOW); KETONES,URINE NEGATIVE (NEGATIVE); LEUKOCYTE ESTERASE ,URINE NEGATIVE (NEGATIVE); NITRITE,URINE NEGATIVE (NEGATIVE); PROTEIN,URINE DIPSTICK NEGATIVE (NEGATIVE); URINE UROBILINOGEN 0.2 mg/dL (0.2 - 1)
[2020-07-13 09:52] LABS: AMPHETAMINES SCREEN,URINE POSITIVE (NEGATIVE); BENZODIAZEPINES SCREEN,URINE POSITIVE (NEGATIVE); PHENCYCLIDINE SCREEN,URINE NEGATIVE (NEGATIVE)
--- NOTE | 2020-07-13 10:01 | Diagnostic Imaging Report ---
EXAM: CTA CHEST WITH CONTRAST, aortic dissection protocol. CLINICAL INDICATION: Shortness of breath and chest pain in a 49-year-old female TECHNIQUE: CTA chest was performed, before and then following the administration of intravenous contrast, as per department aortic dissection protocol. Axial, sagittal, and coronal reconstructions were obtained. 3D reconstructions were obtained. STUDY QUALITY: This examination for the diagnosis of aortic dissection is Satisfactory. There is motion artifact as expected in a non-ECG gated study. IV CONTRAST: cc of RADIATION DOSE REDUCTION: This exam was performed according to the departmental dose-optimization program which includes automated exposure control, adjustment of the mA and/or kV according to patient size and/or use of iterative reconstruction technique. COMPARISON: None FINDINGS: LOWER NECK: No pathologic process in imaged portion of lower neck. PULMONARY ARTERIES: No evidence for pulmonary emboli or a significant abnormality. The main pulmonary artery trunk measures 26 mm in the coronal plane. THORACIC AORTA AND ITS MAJOR BRANCHES: No pathologic process. The ascending aorta and its tubular portion measures 32 mm. The descending thoracic aorta at the level of the pulmonary artery bifurcation measures 24 mm. These measurements were taken on the axial plane. HEART AND PERICARDIUM: Heart normal size. No coronary artery calcification. No pericardial fluid or thickening. PULMONARY PARENCHYMA AND AIRWAYS: No significant pathologic process. Minimal cystic changes in the lung apices. MEDIASTINUM AND JUAN: No pathologic process. PLEURAL SPACES: No pleural fluid, pleural thickening or pneumothorax. CHEST WALL AND AXILLA: No pathologic process. UPPER ABDOMEN: No pathologic process in imaged portion of upper abdomen. MUSCULOSKELETAL: No pathologic process. ADDITIONAL FINDINGS: None. IMPRESSION: No evidence for acute aortic syndrome. No other significant abnormality on this exam. Standardized Report: [id number]. Signed by: Keyon De Souza MD on 07/13/2020 9:58 AM
[2020-07-13 10:06] LABS: BACTERIA,URINE RARE /HPF; EPITHELIAL CELLS,URINE FEW /LPF; MUCUS,URINE FEW (RARE); RBC,URINE 0-5 /HPF (0-5); WBC,URINE (MAN) 0-5 /HPF (0-5)
[2020-07-13] MEDS ORDERED: ASPIRIN 325 MG TAB PO ONE (10:30)
[2020-07-13 10:40] VITALS: BP 135/90
== END 2020-07-13 10:42 | disposition home or self-care (01) ==
LOC: ER 08:07
DX: R07.9 Chest pain, unspecified (principal); E11.65 Type 2 diabetes mellitus with hyperglycemia; F41.9 Anxiety disorder, unspecified; Z86.73 Personal history of transient ischemic attack (TIA), and cerebral infarction without residual deficits; F15.90 Other stimulant use, unspecified, uncomplicated; F13.90 Sedative, hypnotic, or anxiolytic use, unspecified, uncomplicated; R94.31 Abnormal electrocardiogram [ECG] [EKG]; F17.210 Nicotine dependence, cigarettes, uncomplicated
CPT/HCPCS: 36415; 71275; 80053; 80307; 81001; 83690; 84484; 85025; 93005; 99284; J2405; J3010; J7050; Q9967

== ENCOUNTER 2025-03-28 00:24 | Emergency (ER) | payer OTHER ==
[~2025-03-28] VITALS: Ht 165.1 cm; Wt 65.3 kg
[2025-03-28 00:34] VITALS: PULSE 90; RESP 15; TEMP 97.9
[2025-03-28] MEDS ORDERED: METFORMIN HCL500 MG PO (02:37)
[2025-03-28 03:11] VITALS: BP 130/71; PULSE 90; RESP 15; TEMP 97.9; O2SAT 98
== END 2025-03-28 02:49 | disposition home or self-care (01) ==
LOC: FSED 01:00
DX: R07.89 Other chest pain (principal); E11.65 Type 2 diabetes mellitus with hyperglycemia; M54.9 Dorsalgia, unspecified; G89.29 Other chronic pain; F41.9 Anxiety disorder, unspecified; F32.A Depression, unspecified; R94.31 Abnormal electrocardiogram [ECG] [EKG]; Z86.73 Personal history of transient ischemic attack (TIA), and cerebral infarction without residual deficits; Z87.442 Personal history of urinary calculi
CPT/HCPCS: 71046; 80053; 84484; 85025; 93005; 99284